=== PATIENT | female | born 1970 | race African-American/Black ===

== ENCOUNTER 2016-11-09 09:11 | Inpatient (IN) | payer MEDICARE, OTHER ==
[~2016-11-09] VITALS: Ht 167.6 cm; Wt 102.6 kg
[~2016-11-09 09:11] MED LIST: BENZ1TAB PO; HALDOL DECONATE IM; HALO10 PO
[2016-11-09 09:31] VITALS: BP 153/86; PULSE 104; RESP 16; TEMP 98.4; O2SAT 100
[2016-11-09] MEDS ORDERED: CLOZ100T3 PO (09:47)
[2016-11-09] MEDS ORDERED: CLOZ200T PO (09:47)
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
[2016-11-09 10:13] LABS: AUTOMATED NEUTROPHIL # 2.9 TH/MM3 (1.8-7.7); BASOPHIL # 0.1 TH/MM3 (0-0.2); HEMATOCRIT 30.6 % (35.0-46.0); HEMO FLAGS DIFF FINAL; LYMPH % 36.4 % (9.0-44.0); LYMPHOCYTE # 1.9 TH/MM3 (1.0-4.8); MEAN CELL VOLUME 80.8 FL (80.0-100.0); MEAN CORPUSCULAR HEMOGLOBIN 27.8 PG (27.0-34.0); MEAN CORPUSCULAR HGB CONC 34.5 % (32.0-36.0); MONO % 6.9 % (0.0-8.0); NEUT % 55.7 % (16.0-70.0); PLATELET COUNT 303 TH/MM3 (150-450); RED BLOOD COUNT 3.79 MIL/MM3 (4.00-5.30); RED CELL DISTRIBUTION WIDTH 12.9 % (11.6-17.2); WHITE BLOOD COUNT 5.2 TH/MM3 (4.0-11.0)
[2016-11-09 10:27] LABS: ANION GAP 7 MEQ/L (5-15); BICARBONATE 25.3 MEQ/L (21.0-32.0); BLOOD UREA NITROGEN 8 MG/DL (7-18); CHLORIDE 107 MEQ/L (98-107); GLOMERULAR FILTRATION RATE 103 ML/MIN (>89); POTASSIUM 3.7 MEQ/L (3.5-5.1); SODIUM (NA) 139 MEQ/L (136-145)
[2016-11-09 10:34] LABS: ALCOHOL LESS THAN 3 MG/DL (0-5)
[2016-11-09] MEDS ORDERED: diphenhydrAMINE HCL 50 MG CAP PO ONE (17:15)
[2016-11-09] MEDS ORDERED: HALOPERIDOL 10 MG TAB PO ONE (17:15)
[2016-11-09 18:17] VITALS: BP 152/90; PULSE 95; RESP 17; TEMP 98.6; O2SAT 99
[2016-11-09 23:00] VITALS: BP 156/106; PULSE 96; RESP 16; TEMP 97.1; O2SAT 99
[2016-11-09] MEDS ORDERED: diphenhydrAMINE HCL 50 MG/ML VIAL - HS PRN IM (23:00)
[2016-11-09] MEDS ORDERED: HALOPERIDOL 5 MG TAB PO PRN (23:00)
[2016-11-09] MEDS ORDERED: ACETAMINOPHEN 325 MG TAB PO PRN (23:00)
[2016-11-09] MEDS ORDERED: LORazepam 2 MG/ML VIAL IM PRN (23:00)
[2016-11-09] MEDS ORDERED: diphenhydrAMINE HCL 50 MG CAP - HS PRN PO (23:00)
[2016-11-09] MEDS ORDERED: ALUMINUM/MAGNESIUM/SIMETH 30 ML CUP PO PRN (23:00)
[2016-11-09] MEDS ORDERED: MAGNESIUM HYDROXIDE SUSP 30 ML CUP PO PRN (23:00)
[2016-11-09] MEDS ORDERED: HALOPERIDOL LACTATE 5 MG/ML AMP IM PRN (23:00)
[2016-11-09] MEDS: cloZAPine 100 MG TAB PO SCH (23:00)
[2016-11-09 23:13] VITALS: BP 166/75; PULSE 87; RESP 18
[2016-11-10] MEDS: LORazepam 1 MG TAB PO PRN ×2 (00:25→18:45)
[2016-11-10] MEDS ORDERED: cloNIDine HCL 0.1 MG TAB PO PRN ×2 (03:15→08:45)
[2016-11-10 05:57] VITALS: BP 121/82; PULSE 92; RESP 18; TEMP 98.6; O2SAT 99
[2016-11-10] MEDS: cloZAPine 100 MG TAB PO SCH ×2 (08:15→19:59)
[2016-11-10] MEDS: NICOTINE 21 MG/24 HR PATCH T-DERMAL SCH (08:16)
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
[2016-11-10] MEDS ORDERED: NICOTINE 14 MG/24 HR PATCH T-DERMAL ONE (09:45)
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
[2016-11-10] MEDS ORDERED: diphenhydrAMINE HCL 50 MG CAP PO SCH (12:00)
[2016-11-10 18:00] VITALS: PULSE 124; RESP 18; O2SAT 100
[2016-11-10] MEDS: diphenhydrAMINE HCL 50 MG CAP PO SCH (19:59)
[2016-11-10] MEDS: REMOVE OLD NICOTINE PATCH T-DERMAL SCH (19:59)
[2016-11-10] MEDS ORDERED: HALOPERIDOL LACTATE 5 MG/ML AMP IM PRN (21:40)
[2016-11-10] MEDS ORDERED: LORazepam 2 MG/ML VIAL IM PRN (22:15)
[2016-11-11] MEDS: NICOTINE 14 MG/24 HR PATCH T-DERMAL SCH (08:49)
[2016-11-11] MEDS: REMOVE OLD PATCH T-DERMAL SCH (08:49)
[2016-11-11] MEDS: cloZAPine 100 MG TAB PO SCH ×2 (08:49→21:24)
[2016-11-11] MEDS: NICOTINE 21 MG/24 HR PATCH T-DERMAL SCH (09:00)
[2016-11-11 10:55] LABS: AUTOMATED NEUTROPHIL # 2.9 TH/MM3 (1.8-7.7); BASOPHIL % 0.4 % (0.0-2.0); HEMATOCRIT 32.4 % (35.0-46.0); HEMO FLAGS DIFF FINAL; LYMPH % 37.3 % (9.0-44.0); MEAN CELL VOLUME 81.5 FL (80.0-100.0); MEAN CORPUSCULAR HEMOGLOBIN 26.3 PG (27.0-34.0); MEAN CORPUSCULAR HGB CONC 32.3 % (32.0-36.0); MONO % 8.9 % (0.0-8.0); NEUT % 53.4 % (16.0-70.0); PLATELET COUNT 348 TH/MM3 (150-450); RED BLOOD COUNT 3.97 MIL/MM3 (4.00-5.30); RED CELL DISTRIBUTION WIDTH 13.3 % (11.6-17.2); WHITE BLOOD COUNT 5.4 TH/MM3 (4.0-11.0)
[2016-11-11 11:21] LABS: ANION GAP 5 MEQ/L (5-15); AST (GOT) 25 U/L (15-37); BICARBONATE 29.3 MEQ/L (21.0-32.0); BLOOD UREA NITROGEN 9 MG/DL (7-18); CHLORIDE 105 MEQ/L (98-107); GLOMERULAR FILTRATION RATE 86 ML/MIN (>89); MAGNESIUM 2.1 MG/DL (1.5-2.5); POTASSIUM 3.9 MEQ/L (3.5-5.1); SODIUM (NA) 139 MEQ/L (136-145)
[2016-11-11 11:22] LABS: ALT (GPT) 20 U/L (10-53)
[2016-11-11 11:31] LABS: ALKALINE PHOSPHATASE 84 U/L (45-117); FREE T4 1.33 NG/DL (0.76-1.46); TOTAL BILIRUBIN ADULT 0.4 MG/DL (0.2-1.0)
--- NOTE | 2016-11-11 14:23 | PD.PSY.CON ---
Provisional Diagnosis Admission Date Nov 09, 2016 at 22:45 [place] I. Schizophrenia, TBI, history of alcohol/cocaine use [place] II. defferred History of Present Illness Service Psychiatry Consult Requested By Reason for Consult Psychosis, second opinion Primary Care Physician Unknown HPI Patient is a 46 y/o woman, single, living with mother and step- father (previously at [facility] x 10 years), with past psychiatric history of schizophrenia, TBI, remote history of alcohol/cocaine use, with multiple psychiatric admissions (last at [facility]), unknown if previous suicide attempts, who was brought to the hospital under [place] act by police for inability to care for self, mother concerned that that patient was having a "mental breakdown" who was admitted to the inpatient psychiatry unit for further evaluation and stabilization. Discussion with nursing staff reported patient noted to be childlike, noted to be urinating on the floor, impulsive and had placed her name bracelet in her vagina; did not sleep last night. Patient was seen on the inpatient psychiatry unit, found participating in activity outside in the patio and found urinating in the grass which patient had to be taken back to the unit. Patient noted to be malodorous and engaging in interview with va underwriter and nurse. Patient noted to be disorganized throughout interview with concrete though process. She states that she had been compliant with medications at home, lives with mother and stepfather, and denies any auditory hallucinations. She recalls her mothers phone number . Patient requested to take a shower. The patient is a 46 year old woman, single, domiciled with her mother, with extensive psychiatric history of schizophrenia, traumatic brain injury, alcoholism, multiple psychiatric hospitalizations, state hospitalizations, who was brought to the hospital due to altered mental breakdown. Patient seen today for psychiatric evaluation and second opinion. Patient is disorganized, agitated, and seclusion. She is not giving any significant information at the moment. As per nursing charge staff members in the unit patient has been very disorganized, agitated, difficult to redirect. Past Family Social History Coded Allergies: ampicillin (Unverified Allergy, Severe, Hives, 09/24/16) azithromycin (Unverified Allergy, Severe, Hives, 09/24/16) cefepime (Unverified Allergy, Severe, Hives, 09/24/16) ceftaroline fosamil (Unverified Allergy, Severe, Hives, 09/24/16) cephalexin (Unverified Allergy, Severe, Hives, 09/24/16) erythromycin base (Unverified Allergy, Severe, Hives, 09/24/16) neomycin (Unverified Allergy, Severe, Hives, 09/24/16) penicillin G (Unverified Allergy, Severe, Hives, 09/24/16) Reported Medications Clozapine (Clozapine) 200 Mg Tab, 200 MG PO HS for Schizophrenia, TAB 0 Refills 11/09/16 Clozapine (Clozapine) 100 Mg Tab, 100 MG PO DAILY for Schizophrenia, TAB 0 Refills 11/09/16 Discontinued Reported Medications [Haldol Deconate] No Conflict Check, 100 MG IM EVERY 4 WEEKS-, 0 Refills 11/05/07 Benztropine Mesylate (Benztropine Mesylate) 1 Mg Tab, 1 MG PO DAILY, #30 0 Refills 11/05/07 Haloperidol (Haldol) 10 Mg Tab, 10 MG PO DAILY, #30 0 Refills 11/05/07 Current Medications Medications (Trade) Dose Ordered Sig/Jarod Route Start Time Stop Time Status Last Admin (Ativan) 1 mg Q6H PRN PO 11/09/16 23:00 11/10/16 18:45 (Ativan Inj) 1 mg Q6H PRN IM 11/09/16 23:00 (Benadryl Inj) 50 mg HS PRN IM 11/09/16 23:00 (Tylenol) 650 mg Q4H PRN PO 11/09/16 23:00 (Milk Of Magnesia Liq) 30 ml DAILY PRN PO 11/09/16 23:00 (Mag-Al Plus Susp Liq) 30 ml Q6H PRN PO 11/09/16 23:00 (Habitrol 21 Mg Patch.24 Hr) 1 patch DAILY T-DERMAL 11/10/16 09:00 11/10/16 08:16 Miscellaneous Information 1 HS T-DERMAL 11/10/16 21:00 (Haldol) 5 mg Q6H PRN PO 11/09/16 23:00 11/10/16 18:45 (Haldol Inj) 5 mg Q6H PRN IM 11/09/16 23:00 (Clozaril) 100 mg DAILY PO 11/10/16 09:00 11/11/16 08:49 (Clozaril) 200 mg HS PO 11/09/16 23:00 11/10/16 19:59 (Catapres) 0.1 mg Q6HR PRN PO 11/10/16 08:45 (Habitrol 14 Mg Patch.24 Hr) 1 patch DAILY T-DERMAL 11/11/16 09:00 11/11/16 08:49 Miscellaneous Information 1 DAILY T-DERMAL 11/11/16 09:00 (Benadryl) 50 mg HS PO 11/10/16 21:00 11/10/16 19:59 Patient's Strengths (min. 2) verbal and comunicative Physical Exam Vital Signs Vital Signs Date Time Temp Pulse Resp B/P (MAP) Pulse Ox O2 Delivery O2 Flow Rate FiO2 11/10/16 18:00 124 18 100 11/10/16 05:57 98.6 121/82 (95) 11/09/16 18:17 Room Air Lab Results Test 11/11/16 09:27 White Blood Count 5.4 TH/MM3 Red Blood Count 3.97 MIL/MM3 Hemoglobin 10.5 GM/DL Hematocrit 32.4 % Mean Corpuscular Volume 81.5 FL Mean Corpuscular Hemoglobin 26.3 PG Mean Corpuscular Hemoglobin Concent 32.3 % Red Cell Distribution Width 13.3 % Platelet Count 348 TH/MM3 Mean Platelet Volume 8.6 FL Neutrophils (%) (Auto) 53.4 % Lymphocytes (%) (Auto) 37.3 % Monocytes (%) (Auto) 8.9 % Eosinophils (%) (Auto) 0.0 % Basophils (%) (Auto) 0.4 % Neutrophils # (Auto) 2.9 TH/MM3 Lymphocytes # (Auto) 2.0 TH/MM3 Monocytes # (Auto) 0.5 TH/MM3 Eosinophils # (Auto) 0.0 TH/MM3 Basophils # (Auto) 0.0 TH/MM3 CBC Comment DIFF FINAL Differential Comment Blood Urea Nitrogen 9 MG/DL Creatinine 0.86 MG/DL Random Glucose 68 MG/DL Total Protein 7.8 GM/DL Albumin 3.5 GM/DL Calcium Level 9.1 MG/DL Phosphorus Level 2.9 MG/DL Magnesium Level 2.1 MG/DL Alkaline Phosphatase 84 U/L Aspartate Amino Transf (AST/SGOT) 25 U/L Alanine Aminotransferase (ALT/SGPT) 20 U/L Total Bilirubin 0.4 MG/DL Sodium Level 139 MEQ/L Potassium Level 3.9 MEQ/L Chloride Level 105 MEQ/L Carbon Dioxide Level 29.3 MEQ/L Anion Gap 5 MEQ/L Estimat Glomerular Filtration Rate 86 ML/MIN Free Thyroxine 1.33 NG/DL Thyroid Stimulating Hormone 3rd Gen 1.730 uIU/ML Mental Status Examination Speech: Unremarkable Orientation: Person, Place Memory: Unremarkable Thought Process: Other (concrete and disorganized) Hallucination Type: None Attention and Concentration: Easily Distracted Suicidal Ideation: No Previous Suicide Attempts: No Homicidal Ideation: No Previous Homicide Attempts: No Insight: Poor Judgment: Poor Affect: Other (restricted) Mood: Other ("ok") Motor Activity: Normal gait Assessment & Plan Problem List: (1) Schizophrenia, acute ICD Codes: F20.9 - Schizophrenia, unspecified Status: Acute Assessment & Plan: I have seen and examined this patient, discussed personally with Dr. Sanders, I agree and concur with his assessment and plan. (2) TBI (traumatic brain injury) ICD Codes: S06.9X9A - Unspecified intracranial injury with loss of consciousness of unspecified duration, initial encounter Assessment & Plan Estimated LOS: Mahad Bernal MD Nov 11, 2016 14:23
--- NOTE | 2016-11-11 16:02 | HHI.PYPN ---
Subjective Remarks Patient seen for follow-up, chart reviewed. Patient found lying on hospital bed , calm and cooperative with interview. As per discussion with nursing staff, patient slept last night but required Haldol 5mg PO and Ativan 1mg PO as she was very active and disorganized yesterday evening but eventually slept. Patient 's mother called and stated that she is willing to take her back once she is better. Patient states feeling "good", wanting to go home, slept better last night. She states taking her medications and agreed to blood draw for labs today. She denies any AVH. Review of Systems Except as stated in HPI: all other systems reviewed are Neg Objective Alert: Yes [place]: Person, Place Mood: Calm Affect: Restricted Memory Intact: Comment (not formally assessed) Hallucinations: Other (denies) Delusions: Yes Delusion Type: Paranoid Suicidal: Ideation (denies) Homicidal: Ideation (denies) Insight/Judgment Poor insight, impulse control and judgment Labs labs reviewed Test 11/11/16 09:27 White Blood Count 5.4 TH/MM3 Red Blood Count 3.97 MIL/MM3 Hemoglobin 10.5 GM/DL Hematocrit 32.4 % Mean Corpuscular Volume 81.5 FL Mean Corpuscular Hemoglobin 26.3 PG Mean Corpuscular Hemoglobin Concent 32.3 % Red Cell Distribution Width 13.3 % Platelet Count 348 TH/MM3 Mean Platelet Volume 8.6 FL Neutrophils (%) (Auto) 53.4 % Lymphocytes (%) (Auto) 37.3 % Monocytes (%) (Auto) 8.9 % Eosinophils (%) (Auto) 0.0 % Basophils (%) (Auto) 0.4 % Neutrophils # (Auto) 2.9 TH/MM3 Lymphocytes # (Auto) 2.0 TH/MM3 Monocytes # (Auto) 0.5 TH/MM3 Eosinophils # (Auto) 0.0 TH/MM3 Basophils # (Auto) 0.0 TH/MM3 CBC Comment DIFF FINAL Differential Comment Blood Urea Nitrogen 9 MG/DL Creatinine 0.86 MG/DL Random Glucose 68 MG/DL Total Protein 7.8 GM/DL Albumin 3.5 GM/DL Calcium Level 9.1 MG/DL Phosphorus Level 2.9 MG/DL Magnesium Level 2.1 MG/DL Alkaline Phosphatase 84 U/L Aspartate Amino Transf (AST/SGOT) 25 U/L Alanine Aminotransferase (ALT/SGPT) 20 U/L Total Bilirubin 0.4 MG/DL Sodium Level 139 MEQ/L Potassium Level 3.9 MEQ/L Chloride Level 105 MEQ/L Carbon Dioxide Level 29.3 MEQ/L Anion Gap 5 MEQ/L Estimat Glomerular Filtration Rate 86 ML/MIN Free Thyroxine 1.33 NG/DL Thyroid Stimulating Hormone 3rd Gen 1.730 uIU/ML Vitals/IOs Vital Signs Date Time Temp Pulse Resp B/P (MAP) Pulse Ox O2 Delivery O2 Flow Rate FiO2 11/10/16 18:00 124 18 100 11/10/16 05:57 98.6 121/82 (95) 11/09/16 18:17 Room Air Assessment & Plan Problem List: (1) Schizophrenia, acute ICD Codes: F20.9 - Schizophrenia, unspecified Status: Acute (2) TBI (traumatic brain injury) ICD Codes: S06.9X9A - Unspecified intracranial injury with loss of consciousness of unspecified duration, initial encounter Assessment & Plan Patient continues to be disorganized, internally preoccupied but was able to sleep last night. Patient is re-directable and requires encouragement to maintain hygiene. Continue current treatment with upward titration as needed. Clozapine level still pending to be drawn. Discharge planning in progress. Justification for Cont. Inpt. At risk for further decompensation if at lower level of care. Emre Sanders MD Nov 11, 2016 16:02
[2016-11-11] MEDS: REMOVE OLD NICOTINE PATCH T-DERMAL SCH (21:00)
[2016-11-11] MEDS: diphenhydrAMINE HCL 50 MG CAP PO SCH (21:24)
[2016-11-12 06:14] VITALS: BP 119/77; PULSE 107; RESP 17; TEMP 97.9; O2SAT 98
[2016-11-12] MEDS: NICOTINE 21 MG/24 HR PATCH T-DERMAL SCH (08:22)
[2016-11-12] MEDS: cloZAPine 100 MG TAB PO SCH (08:22)
[2016-11-12] MEDS: REMOVE OLD PATCH T-DERMAL SCH (09:00)
[2016-11-12] MEDS: NICOTINE 14 MG/24 HR PATCH T-DERMAL SCH (09:00)
--- NOTE | 2016-11-12 10:03 | HHI.PR ---
Subjective Remarks Follow-up visit HTN, anemia. Patient seen and examined today sitting in a chair exercise room. Reports she is doing well. Patient states that she was diagnosed with high blood pressure before and she takes "food, clothing,water, that's what I do." Noted confusion, delirium/psychosis. Unable to verify provided history on medication management. Denies chest pain, headaches. No shortness of breath and dyspnea. Denies fevers or chills. Objective Vitals Vital Signs Date Time Temp Pulse Resp B/P (MAP) Pulse Ox O2 Delivery O2 Flow Rate FiO2 11/12/16 06:14 97.9 107 17 119/77 (91) 98 Result Diagram: 11/11/1692611/11/16926 Objective Remarks GENERAL: This is an obese, well-developed patient, in no apparent distress. SKIN: Warm and dry. HEENT: Normocephalic. Sunken right periorbital area. Unequal eye shape. Nose without bleeding. Airway patent. NECK: Trachea midline. Supple. CARDIOVASCULAR: Regular rate and rhythm without murmurs, gallops, or rubs. RESPIRATORY: Clear to auscultation. Breath sounds equal bilaterally. No wheezes , rales, or rhonchi. GASTROINTESTINAL: Abdomen soft, non-tender, nondistended. Bowel Sounds normoactive x4. MUSCULOSKELETAL: Extremities without clubbing, cyanosis, or edema. NEUROLOGICAL: Awake and alert. Oriented to person. Moves all extremities. Normal speech. A/P Problem List: (1) Hypertension ICD Code: I10 - Essential (primary) hypertension (2) Schizophrenia, acute ICD Code: F20.9 - Schizophrenia, unspecified Status: Acute (3) Morbid obesity ICD Code: E66.01 - Morbid (severe) obesity due to excess calories Assessment and Plan Patient is a 46-year-old female who came in to the hospital under [place] act the police for refusal of taking medications. She is now admitted to psychiatry for further evaluation. Consulted for medical management. History of schizophrenia Psychosis - Managed by psychiatry team Elevated blood pressure on admission - Unknown history of real hypertension. Patient states she has high blood pressure but unable to elaborate. There is no BP medication found on her medical record, nor previous diagnosis of hypertension, except an ED question that placed Yes to HTN . Review of records since 2006. - Review of records since 2006 showed BP wnl, except for every initial admission wherein patient was BA due to not taking her psychiatric medication. - Elevated blood pressure possibly secondary to psychiatric illness being uncontrolled including agitation and anxiety. - Currently on clonidine PRN. - BP trend within normal - Will not start patient on any BP meds for now. Anemia, normocytic - Possibly due to chronic disease - Stable compared to previous labs DVT prop ambulatory Discussed with patient, nursing Stable from Hospitalist standpoint. We will sign off. Reconsult as needed. Becky Vu Nov 12, 2016 10:03
[2016-11-12 16:00] LABS: HEMOGLOBIN A1a 1.6 %; HEMOGLOBIN A1b 0.7 %; HEMOGLOBIN Ao 85.3 %; HEMOGLOBIN F 1.5 %; HEMOGLOBIN LA1C 1.4 %; HEMOGLOBIN P3 3.2 %
--- NOTE | 2016-11-12 16:11 | HHI.PYPN ---
Subjective Remarks Patient seen for follow-up, chart reviewed. Patient found lying on hospital bed , calm and cooperative with interview. Patient states feelng "ok", reports sleeping well, attending groups, and compliant with treatment. She states that she would like to go home. Little deneis any perceptual disturbances or paranoia at this time. Review of Systems Except as stated in HPI: all other systems reviewed are Neg Objective Alert: Yes [place]: Person, Place Mood: Calm Affect: Restricted Memory Intact: Comment (not formally assessed) Hallucinations: Other (denies) Delusions: Yes Delusion Type: Paranoid Suicidal: Ideation (denies) Homicidal: Ideation (denies) Insight/Judgment poor insight, impulse control and judgment Labs Test 11/12/16 09:34 Vitals/IOs Vital Signs Date Time Temp Pulse Resp B/P (MAP) Pulse Ox O2 Delivery O2 Flow Rate FiO2 11/12/16 06:14 97.9 107 17 119/77 (91) 98 11/09/16 18:17 Room Air Intake and Output 11/12/16 11/12/16 11/13/16 08:00 16:00 00:00 Intake Total 360 ml Balance 360 ml Assessment & Plan Problem List: (1) Schizophrenia, acute ICD Codes: F20.9 - Schizophrenia, unspecified Status: Acute (2) TBI (traumatic brain injury) ICD Codes: S06.9X9A - Unspecified intracranial injury with loss of consciousness of unspecified duration, initial encounter Assessment & Plan Patient noted to be responding to treatment but still noted to be disorganized. Will increase clozaril to 100mg AM/225 vmg PO HS Continue rest of medications. Continue to encourage maintenance of hygiene and participation in groups and activities. Justification for Cont. Inpt. At risk for further decompensation if at lower level of care. Emre Sanders MD Nov 12, 2016 16:11
[2016-11-12] MEDS ORDERED: PILL SPLITTER OTHER PRN (16:15)
[2016-11-12 18:17] VITALS: BP 162/80; PULSE 91; RESP 18; TEMP 98.1; O2SAT 100
[2016-11-12] MEDS ORDERED: cloZAPine 100 MG TAB PO SCH (21:00)
[2016-11-12] MEDS: REMOVE OLD NICOTINE PATCH T-DERMAL SCH (21:00)
[2016-11-12] MEDS: diphenhydrAMINE HCL 50 MG CAP PO SCH (21:17)
[2016-11-13 06:22] VITALS: BP 138/71; PULSE 99; RESP 16; TEMP 98.3; O2SAT 99
[2016-11-13] MEDS: cloZAPine 100 MG TAB PO SCH (08:28)
[2016-11-13] MEDS: NICOTINE 14 MG/24 HR PATCH T-DERMAL SCH (08:30)
[2016-11-13] MEDS: REMOVE OLD PATCH T-DERMAL SCH (08:31)
--- NOTE | 2016-11-13 15:18 | HHI.PYPN ---
Subjective Remarks Patient seen for follow-up, chart reviewed. Patient found lying in hospital bed , was able to wake up and interact with interview today. Patient states that she is feeling better, tolerating medications well denies any adverse drug reactions. Patient states that she would like to go home and feels she is very to go home. Patient noted to be disorganized on occasion during interview also noted were concrete thought processes patient has history of traumatic brain injury. Patient aware that she will be presenting herself to mental health court tomorrow. Patient denies SI, HI, AVH or delusions at this time. Review of Systems Except as stated in HPI: all other systems reviewed are Neg Objective Alert: Yes [place]: Person, Place Mood: Calm Affect: Restricted Memory Intact: Comment (not formally assessed) Hallucinations: Other (denies) Delusions: Yes Delusion Type: Paranoid (less so today) Suicidal: Ideation (denies) Homicidal: Ideation (denies) Insight/Judgment Limited insight, impulse control and judgment Vitals/IOs Vital Signs Date Time Temp Pulse Resp B/P (MAP) Pulse Ox O2 Delivery O2 Flow Rate FiO2 11/13/16 06:22 98.3 99 16 138/71 (93) 99 11/09/16 18:17 Room Air Assessment & Plan Problem List: (1) Schizophrenia, acute ICD Codes: F20.9 - Schizophrenia, unspecified Status: Acute (2) TBI (traumatic brain injury) ICD Codes: S06.9X9A - Unspecified intracranial injury with loss of consciousness of unspecified duration, initial encounter Assessment & Plan Patient at this time appears to be responding well to current treatment but noted to have occasional moments of disorganization during interview. Patient has history of TBI and therefore with impaired cognition impulse control due to the same. We'll increase clozapine to 100 mg a.m. and 250 mg at bedtime for psychosis. We'll try to have mother visited patient to assess if patient is at baseline. Continue to monitor medication response and adverse drug reactions. Discharge planning in progress Justification for Cont. Inpt. At risk for further decompensation if at lower level of care Emre Sanders MD Nov 13, 2016 15:18
[2016-11-13 17:00] VITALS: BP 113/63; PULSE 105; RESP 18; TEMP 97.8; O2SAT 99
--- NOTE | 2016-11-13 17:21 | PD.TTN ---
Patient Problems 1. Discharge planning 2. Medication compliance 3. Knowledge deficit 4. Lack of coping skills Progress Toward Goals Provider Present: Dr. Delfina Sanders Provider Input: Dr. Dodson's treatment team met to discuss treatment plan, discharge, and medication. Patient's medication is being increased. Possible discharge tomorrow or Friday. Psychiatric Counselors Present: MELECIO Powers Psych Therapist Input: Patient presented anxious, cooperative but constricted, childlike, dependent. pleasant, affect blunted. Patient's speech is clear, disorganized, and pressure. Patient denies suicidal and homicidal. 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 Patient is intrusive, participates appropriately Ruchi Torres Nov 13, 2016 17:21
[2016-11-13] MEDS ORDERED: cloZAPine 100 MG TAB PO SCH (21:00)
[2016-11-13] MEDS: REMOVE OLD NICOTINE PATCH T-DERMAL SCH (21:00)
[2016-11-13] MEDS: diphenhydrAMINE HCL 50 MG CAP PO SCH (21:07)
[2016-11-14 05:37] VITALS: BP 104/63; PULSE 106; RESP 17; TEMP 98
[2016-11-14] MEDS: REMOVE OLD PATCH T-DERMAL SCH (08:27)
[2016-11-14] MEDS: cloZAPine 100 MG TAB PO SCH (08:27)
[2016-11-14] MEDS: NICOTINE 14 MG/24 HR PATCH T-DERMAL SCH (08:29)
[2016-11-14] MEDS ORDERED: DIPH50CA PO (08:49)
[2016-11-14] MEDS ORDERED: CLOZ100 PO ×2 (08:49)
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
[2016-11-14 08:56] LABS: CLOZAPINE/NORCLOZAPINE TOTAL 864 ng/mL (>450); NORCLOZAPINE 206 ng/mL
== END 2016-11-14 10:05 | disposition home or self-care (01) | DRG 885 ==
LOC: NEPD 09:11 → NEDA 22:45 → H270 23:30
PROVIDERS: ADMIT Student in an Organized Health Care Education/Training Program; ATTEND Student in an Organized Health Care Education/Training Program
DX: F20.9 Schizophrenia, unspecified (principal); Z91.14 Patient's other noncompliance with medication regimen; E66.01 Morbid (severe) obesity due to excess calories; Z68.36 Body mass index [BMI] 36.0-36.9, adult; Z87.820 Personal history of traumatic brain injury; H54.61 Unqualified visual loss, right eye, normal vision left eye; I10 Essential (primary) hypertension; F17.210 Nicotine dependence, cigarettes, uncomplicated; D64.9 Anemia, unspecified
CPT/HCPCS: 80048; 80053; 80159; 80307; 83036; 83735; 84100; 84439; 84443; 84703; 85025; G0480; Q0163

== ENCOUNTER 2017-01-19 09:51 | Inpatient (IN) | payer MEDICARE, OTHER ==
[~2017-01-19] VITALS: Ht 167.6 cm; Wt 105.9 kg
[~2017-01-19 09:51] MED LIST changes: -BENZ1TAB PO; +CLOZ100T PO; +CLOZ100T3 PO; +CLOZ200T PO; +DIPH50CA PO; -HALDOL DECONATE IM; -HALO10 PO
[2017-01-19 09:57] VITALS: BP 156/88; PULSE 71; RESP 16; TEMP 98.8; O2SAT 98
[2017-01-19 10:35] VITALS: BP 128/73; PULSE 110; RESP 18; TEMP 97.1; O2SAT 100
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
[2017-01-19] MEDS ORDERED: PANTOPRAZOLE SOD 40 MG DELAYED RELEASE TAB PO ONE (12:15)
[2017-01-19] MEDS ORDERED: OLANZapine IM 10 MG VIAL IM ONE (12:15)
[2017-01-19] MEDS ORDERED: HALOPERIDOL LACTATE 5 MG/ML AMP IM PRN (12:15)
[2017-01-19] MEDS ORDERED: diphenhydrAMINE HCL 50 MG/ML VIAL IM ONE (12:15)
[2017-01-19] MEDS ORDERED: LORazepam 2 MG/ML VIAL IM PRN (12:15)
[2017-01-19 13:57] LABS: AUTOMATED NEUTROPHIL # 10.9 TH/MM3 (1.8-7.7); BASOPHIL # 0.1 TH/MM3 (0-0.2); BASOPHIL % 0.5 % (0.0-2.0); HEMATOCRIT 32.6 % (35.0-46.0); HEMO FLAGS DIFF FINAL; LYMPH % 14.1 % (9.0-44.0); MEAN CELL VOLUME 80.5 FL (80.0-100.0); MEAN CORPUSCULAR HEMOGLOBIN 26.2 PG (27.0-34.0); MEAN CORPUSCULAR HGB CONC 32.5 % (32.0-36.0); MONO % 7.3 % (0.0-8.0); NEUT % 78.1 % (16.0-70.0); PLATELET COUNT 297 TH/MM3 (150-450); RED BLOOD COUNT 4.05 MIL/MM3 (4.00-5.30); RED CELL DISTRIBUTION WIDTH 14.6 % (11.6-17.2)
[2017-01-19 14:27] LABS: ALT (GPT) 50 U/L (10-53); ANION GAP 10 MEQ/L (5-15); AST (GOT) 188 U/L (15-37); BICARBONATE 24.5 MEQ/L (21.0-32.0); BLOOD UREA NITROGEN 13 MG/DL (7-18); CHLORIDE 104 MEQ/L (98-107); GLOMERULAR FILTRATION RATE 81 ML/MIN (>89); POTASSIUM 3.7 MEQ/L (3.5-5.1); SODIUM (NA) 138 MEQ/L (136-145)
[2017-01-19 14:30] LABS: ALKALINE PHOSPHATASE 99 U/L (45-117); TOTAL BILIRUBIN ADULT 0.5 MG/DL (0.2-1.0)
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
[2017-01-19] MEDS ORDERED: MAGNESIUM HYDROXIDE SUSP 30 ML CUP PO PRN (17:15)
[2017-01-19] MEDS ORDERED: ALUMINUM/MAGNESIUM/SIMETH 30 ML CUP PO PRN (17:15)
[2017-01-19] MEDS: ACETAMINOPHEN 325 MG TAB PO PRN (17:31)
[2017-01-19 18:30] VITALS: BP 125/66; PULSE 123; RESP 20; TEMP 98.3; O2SAT 100
[2017-01-19] MEDS: diphenhydrAMINE HCL 50 MG CAP PO SCH (20:25)
[2017-01-19] MEDS ORDERED: cloZAPine 100 MG TAB PO SCH (21:00)
[2017-01-20 05:44] VITALS: BP 131/78; PULSE 118; RESP 16; TEMP 97.4; O2SAT 100
[2017-01-20] MEDS: cloZAPine 100 MG TAB PO SCH ×2 (09:00→20:43)
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
[2017-01-20 09:57] LABS: ANION GAP 8 MEQ/L (5-15); BICARBONATE 25.8 MEQ/L (21.0-32.0); BLOOD UREA NITROGEN 10 MG/DL (7-18); CHLORIDE 107 MEQ/L (98-107); GLOMERULAR FILTRATION RATE 73 ML/MIN (>89); POTASSIUM 3.3 MEQ/L (3.5-5.1); SODIUM (NA) 141 MEQ/L (136-145)
[2017-01-20 10:03] LABS: HDL CHOLESTEROL 77.1 MG/DL (40.0-60.0); LDL CHOLESTEROL 95 MG/DL (0-99)
[2017-01-20] MEDS ORDERED: POTASSIUM CHLORIDE 10 MEQ CONTROLLED RELEASE TAB PO ONE (12:15)
[2017-01-20 14:19] LABS: BHCG SCREEN QUALITATIVE LESS THAN 1 MIU/ML (0-5)
[2017-01-20 14:21] LABS: AUTOMATED NEUTROPHIL # 5.9 TH/MM3 (1.8-7.7); BASOPHIL % 0.5 % (0.0-2.0); EOSINOPHIL % 0.1 % (0.0-4.0); HEMATOCRIT 31.2 % (35.0-46.0); LYMPH % 24.8 % (9.0-44.0); LYMPHOCYTE # 2.1 TH/MM3 (1.0-4.8); MEAN CELL VOLUME 80.8 FL (80.0-100.0); MEAN CORPUSCULAR HEMOGLOBIN 26.7 PG (27.0-34.0); MONO % 6.7 % (0.0-8.0); NEUT % 67.9 % (16.0-70.0); PLATELET COUNT 299 TH/MM3 (150-450); RED BLOOD COUNT 3.86 MIL/MM3 (4.00-5.30); RED CELL DISTRIBUTION WIDTH 14.5 % (11.6-17.2); WHITE BLOOD COUNT 8.7 TH/MM3 (4.0-11.0)
[2017-01-20 14:22] LABS: HEMO FLAGS AUTO DIFF
[2017-01-20 15:37] LABS: OVALOCYTES 1+ (NORMAL); PLATELET ESTIMATE SMEAR NORMAL (NORMAL); PLATELET MORPHOLOGY ENLARGED (NORMAL); SCAN/DIFF AUTO DIFF CONFIRMED
[2017-01-20 16:04] LABS: HEMOGLOBIN A1a 1.3 %; HEMOGLOBIN A1b 0.8 %; HEMOGLOBIN Ao 85.2 %; HEMOGLOBIN F 1.4 %; HEMOGLOBIN LA1C 2.2 %; HEMOGLOBIN P3 3.4 %
[2017-01-20 18:51] VITALS: BP 128/70; PULSE 108; RESP 18; TEMP 97.1; O2SAT 100
[2017-01-20] MEDS: diphenhydrAMINE HCL 50 MG CAP PO SCH (20:42)
[2017-01-21 05:51] VITALS: BP 136/95; PULSE 107; RESP 18; TEMP 97.4; O2SAT 100
[2017-01-21] MEDS: cloZAPine 100 MG TAB PO SCH ×2 (08:35→20:22)
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
--- NOTE | 2017-01-21 12:18 | PD.TTN ---
Patient Problems 1. Discharge planning 2. Medication compliance 3. Knowledge deficit 4. Lack of coping skills Progress Toward Goals Provider Present: Dr. Reji Huerta Provider Input: Pt medication regiment continues to be evaluated including increase in pt Clozaril dose. Nurse(s) Present: Quynh Beverly, RN Nurse(s) Input: Pt appears to be doing much better though she presents as easily confused and seems to respond to internal stimuli at times though she denies any symptoms. Psychiatric Counselors Present: KACY Daley Psych Therapist Input: Pt appears calm, cooperative, appropriate, organized, oriented and somewhat intrusive. She denies any symptoms and likely has poor insight into condition and need for care. She appears to be utilizing coping and emotional regulation skills as she has had no outbursts. She is compliant with medication regiment. Group Spec/RT/OT/RAHMAN Present: IMELDA Leong Group Spec/RT/OT/RAHMAN Input: Pt attended exercise group yesterday and appears to be responding to internal stimuli at times. Discharge Plan SMA Pt will be returning to her home and will be linked with outpatient psychiatric follow up appointment. Documentation Scribe: KACY Daley Jonathan LMHC Jan 21, 2017 12:18
[2017-01-21 12:40] LABS: ANION GAP 7 MEQ/L (5-15); AST (GOT) 81 U/L (15-37); BICARBONATE 28.3 MEQ/L (21.0-32.0); BLOOD UREA NITROGEN 8 MG/DL (7-18); CHLORIDE 106 MEQ/L (98-107); GLOMERULAR FILTRATION RATE 90 ML/MIN (>89); POTASSIUM 3.8 MEQ/L (3.5-5.1); SODIUM (NA) 141 MEQ/L (136-145)
[2017-01-21 12:43] LABS: ALKALINE PHOSPHATASE 94 U/L (45-117); ALT (GPT) 46 U/L (10-53); TOTAL BILIRUBIN ADULT 0.2 MG/DL (0.2-1.0)
--- NOTE | 2017-01-21 13:35 | EKG ---
Date Performed: 01/20/2017 Time Performed: 16:31:38 PTAGE: 46 years EKG: Sinus rhythm POSSIBLE LEFT ATRIAL ENLARGEMENT BORDERLINE ECG Compared to PREVIOUS TRACING , left atrial abnormality is new. PREVIOUS TRACIN04/02/2006 10.57 DOCTOR: Cecilio Smith Interpretating Date/Time 01/21/2017 13:16:35
[2017-01-21] MEDS ORDERED: PILL SPLITTER OTHER PRN (15:30)
[2017-01-21 17:26] VITALS: BP 143/86; PULSE 102; RESP 18; TEMP 98; O2SAT 99
[2017-01-21] MEDS: diphenhydrAMINE HCL 50 MG CAP PO SCH (20:22)
[2017-01-22 05:49] VITALS: BP 146/98; PULSE 105; RESP 18; TEMP 97
[2017-01-22] MEDS: cloZAPine 100 MG TAB PO SCH ×2 (08:36→20:36)
--- NOTE | 2017-01-22 11:08 | HHI.PYPN ---
Subjective Chief Complaint: Wandering, suicidal/homicidal threat Remarks Patient seen and examined with counselor and nurse. Chart reviewed. Case discussed with counselor and nurse. Per nursing staff, no behavioral issues overnight. On my examination today, the patient is in good spirits. No depressive or hypomanic/manic symptoms. She says that she slept well overnight. She denies any suicidal or homicidal ideation. Denies any audiovisual hallucinations. Thought process considerably more organized today. Denies side effects from medications. No physical complaints. Review of Systems Except as stated in HPI: all other systems reviewed are Neg Mental Status Examination Appearance: Appropriate Consciousness: Alert Orientation: Person, Place Motor Activity: Normal gait, Other (no motor abnormalities noted) Speech: Unremarkable Language: Adequate Fund of Knowledge: Inadequate Attention and Concentration: Adequate (much more focused today) Memory: Unremarkable Mood: Good Affect: Euthymic Thought Process & Associations: Linear Thought Content: Appropriate Hallucination Type: None Delusion Type: None Suicidal Ideation: No Suicidal Plan: No Suicidal Intention: No Homicidal Ideation: No Homicidal Plan: No Homicidal Intention: No Insight: Poor Judgment: Poor Results Labs Labs reviewed. HIV and Hepatitis negative. Clozapine level is pending. Vitals/IOs Vital Signs Date Time Temp Pulse Resp B/P (MAP) Pulse Ox O2 Delivery O2 Flow Rate FiO2 01/22/17 05:49 97.0 105 18 146/98 (114) 01/21/17 17:26 99 01/19/17 10:35 Room Air Assessment & Plan Problem List: (1) Schizophrenia ICD Codes: F20.9 - Schizophrenia, unspecified (2) Cocaine abuse ICD Codes: F14.10 - Cocaine abuse, uncomplicated Status: Acute (3) TBI (traumatic brain injury) ICD Codes: S06.9X9A - Unspecified intracranial injury with loss of consciousness of unspecified duration, initial encounter Status: Chronic Assessment & Plan Patient seems much improved today with medication adjustment. Awaiting confirmation of safe discharge plan home; counselor is working on this. Continue clozapine as ordered. Continue other medications and care as ordered. Patient may sign voluntary. Justification for Cont. Inpt. Discharge planning Discharge Planning Anticipate discharge home in the next day or two. 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
[2017-01-22 17:08] VITALS: BP 173/91; PULSE 104; RESP 18; TEMP 98; O2SAT 100
[2017-01-22] MEDS: diphenhydrAMINE HCL 50 MG CAP PO SCH (20:36)
[2017-01-23 03:18] VITALS: BP 134/82; PULSE 108; RESP 20
[2017-01-23 06:03] VITALS: BP 137/69; PULSE 101; RESP 18; TEMP 98.7; O2SAT 100
[2017-01-23] MEDS: cloZAPine 100 MG TAB PO SCH ×2 (08:54→20:42)
--- NOTE | 2017-01-23 12:15 | HHI.PYPN ---
Subjective Chief Complaint: Wandering, suicidal/homicidal threat Remarks Patient seen and examined with nurse. Chart reviewed. Case discussed with nursing staff who reports that the patient has been rambling to herself about going to court, although she did sign in voluntarily. Patient was also unable to tolerate a movie group yesterday because she was apparently internally preoccupied and disturbing other viewers. On my examination today, patient tells me that she feels "a little angry" at her parents for not bringing her more clean clothes. Affect does not seem particularly angry, and she remains fairly childlike. She is noted to be responding to internal stimuli and says that she "heard voices and thought I heard my mom." She denies any suicidal or homicidal ideation. Denies any side effects from medications. No physical complaints. Review of Systems ROS Limitations: Psychotic, Poor Historian Except as stated in HPI: all other systems reviewed are Neg Mental Status Examination Appearance: Appropriate Consciousness: Alert Orientation: Person, Place Motor Activity: Normal gait, Other (no abnormal motor movements noted) Speech: Unremarkable Language: Adequate Fund of Knowledge: Inadequate Attention and Concentration: Adequate Memory: Unremarkable Mood: Angry Affect: Euthymic (childlike, inconsistent with stated mood) Thought Process & Associations: Linear Thought Content: Appropriate Hallucination Type: Auditory (no reported command auditory hallucinations) Delusion Type: None Suicidal Ideation: No Suicidal Plan: No Suicidal Intention: No Homicidal Ideation: No Homicidal Plan: No Homicidal Intention: No Insight: Poor Judgment: Poor Results Labs Labs reviewed. No new labs. Clozapine level is pending. Vitals/IOs Vital Signs Date Time Temp Pulse Resp B/P (MAP) Pulse Ox O2 Delivery O2 Flow Rate FiO2 01/23/17 06:03 98.7 101 18 137/69 (91) 100 01/19/17 10:35 Room Air Assessment & Plan Problem List: (1) Schizophrenia ICD Codes: F20.9 - Schizophrenia, unspecified (2) Cocaine abuse ICD Codes: F14.10 - Cocaine abuse, uncomplicated Status: Acute (3) TBI (traumatic brain injury) ICD Codes: S06.9X9A - Unspecified intracranial injury with loss of consciousness of unspecified duration, initial encounter Status: Chronic Assessment & Plan Patient with interval worsening of psychotic symptoms. Medication non- adherence is not suspected. I will titrate clozapine one more time to 200mg/ 300mg to target psychotic symptoms. I will prophylactically institute seizure precautions as we are titrating the dose above 450mg/day, although patient has tolerated this agent well throughout with no evidence of any side effects. If this medication adjustment is insufficient, we may need to consider an alternative strategy such as augmentation with another antipsychotic (patient has been on Haldol in the past, for example) or addition of a mood stabilizing agent, and I note that the patient has been on Depakote in the past as well. Continue to monitor on inpatient unit. Continue other medications and care as ordered. Justification for Cont. Inpt. Impairment in reality construction. Medication changes. Risk for decompensation in less restrictive setting. Discharge Planning Pending psychiatric stabilization. Request HC Surrog/Guard Advoc?: Yes Problem Qualifiers (1) Schizophrenia: Qualified Codes: F20.1 - Disorganized schizophrenia (2) TBI (traumatic brain injury): Qualified Codes: S06.9X9S - Unspecified intracranial injury with loss of consciousness of unspecified duration, sequela Nicolas Huerta MD Jan 23, 2017 12:15
[2017-01-23] MEDS ORDERED: cloZAPine 25 MG TAB PO ONE (14:15)
[2017-01-23 16:33] LABS: CLOZAPINE/NORCLOZAPINE TOTAL 583 ng/mL (>450); NORCLOZAPINE 160 ng/mL
[2017-01-23] MEDS: diphenhydrAMINE HCL 50 MG CAP PO SCH (20:42)
[2017-01-24 05:00] VITALS: BP 127/75; PULSE 105; RESP 20; TEMP 97.9; O2SAT 100
--- NOTE | 2017-01-24 10:01 | PD.TTN ---
Patient Problems 1. Discharge planning 2. Medication compliance 3. Knowledge deficit 4. Lack of coping skills Progress Toward Goals Provider Present: Dr. Reji Huerta Provider Input: Pt medication regiment continues to be evaluated including increase in pt Clozaril dose. 01/24/17 Patient has a history of TBI. Patient is somatic, internally stimulated. Patient's medication will be increased. At this time patient meets criteria Nurse(s) Present: Quynh Beverly, RN Nurse(s) Input: Pt appears to be doing much better though she presents as easily confused and seems to respond to internal stimuli at times though she denies any symptoms. 01/24/17 Patient's nurse Cris reports patient is medication complaint, cooperative, attends groups and performs her ADL's Psychiatric Counselors Present: KACY Daley Psych Therapist Input: Pt appears calm, cooperative, appropriate, organized, oriented and somewhat intrusive. She denies any symptoms and likely has poor insight into condition and need for care. She appears to be utilizing coping and emotional regulation skills as she has had no outbursts. She is compliant with medication regiment. 01/24/17 Patient presents childlike, intrusive, seclusive preoccupied, affect blunted. patient is alert to person and place but has poor insight into her situation. Patient is medication compliant. Once patient stablizes patient will return home with parents. At this time patient meets criteria. Group Spec/RT/OT/RAHMAN Present: Shruti Rock, IMELDA, LACEY Morin Group Spec/RT/OT/RAHMAN Input: Pt attended exercise group yesterday and appears to be responding to internal stimuli at times. 01/24/17 Patient attends 75% of groups. Patient is often seen talking to himself and requires cues to be appropriate in some groups. Discharge Plan SMA Pt will be returning to her home and will be linked with outpatient psychiatric follow up appointment. Documentation Scribe: KACY Daley [facility] Jan 24, 2017 10:00
[2017-01-24] MEDS: cloZAPine 100 MG TAB PO SCH ×2 (10:48→21:52)
--- NOTE | 2017-01-24 12:50 | HHI.PYPN ---
Subjective Chief Complaint: Wandering, suicidal/homicidal threat Remarks Patient seen and examined with nurse. Chart reviewed. Case discussed with nurse and in treatment team. Both counselor and occupational therapists note that the patient struggles in groups and unit activities. She is frequently inappropriate and has to be excused from groups. Unclear how much of this is related to history of traumatic brain injury. On my examination today, the patient is somewhat intrusive. Speech is somewhat rambling and difficult to follow. She seems to say something about the shower, but it is difficult to follow the sense of what she is telling me. No SI or HI. She denies side effects from medications. No physical complaints. Review of Systems ROS Limitations: Psychotic, Poor Historian Except as stated in HPI: all other systems reviewed are Neg Mental Status Examination Appearance: Appropriate Consciousness: Alert Orientation: Person, Place Motor Activity: Normal gait, Other (no motor abnormalities appreciated) Speech: Unremarkable Language: Adequate Fund of Knowledge: Inadequate Attention and Concentration: Adequate Memory: Unremarkable Mood: Appropriate Affect: Euthymic (childlike) Thought Process & Associations: Other (somewhat more disorganized today) Thought Content: Appropriate Hallucination Type: None Delusion Type: None Suicidal Ideation: No Suicidal Plan: No Suicidal Intention: No Homicidal Ideation: No Homicidal Plan: No Homicidal Intention: No Insight: Poor Judgment: Poor Results Labs Labs reviewed. Clozapine level resulted and as above cutoff. Vitals/IOs Vital Signs Date Time Temp Pulse Resp B/P (MAP) Pulse Ox O2 Delivery O2 Flow Rate FiO2 01/24/17 05:00 97.9 105 20 127/75 (92) 100 Assessment & Plan Problem List: (1) Schizophrenia ICD Codes: F20.9 - Schizophrenia, unspecified (2) Cocaine abuse ICD Codes: F14.10 - Cocaine abuse, uncomplicated Status: Acute (3) TBI (traumatic brain injury) ICD Codes: S06.9X9A - Unspecified intracranial injury with loss of consciousness of unspecified duration, initial encounter Status: Chronic Assessment & Plan Given clozapine level (which was based on prior to admission dosing), further titration of this agent is unlikely to yield additional benefit. Unclear how much of residual behavioral disturbance is secondary to psychosis and how much to TBI, although I suspect that the majority of the contribution is from the latter. I therefore think Depakote is a reasonable choice at this time. The patient does have a resolving transaminitis, likely from prior to admission substance use, and so this will need to be monitored. Platelets are okay. test was negative. Add Depakote DR 250 mg twice daily with plans to check a Depakote level, ammonia level and a set of LFTs after the weekend. Continue to monitor on the inpatient unit. Continue other medications and care as ordered. Justification for Cont. Inpt. Med changes. Risk for decompensation in less restrictive environment. Discharge Planning Possible discharge beginning or middle of next week. Case discussed with counselor. Request HC Surrog/Guard Advoc?: No Problem Qualifiers (1) Schizophrenia: Qualified Codes: F20.1 - Disorganized schizophrenia (2) TBI (traumatic brain injury): Qualified Codes: S06.9X9S - Unspecified intracranial injury with loss of consciousness of unspecified duration, sequela Nicolas Huerta MD Jan 24, 2017 12:50
[2017-01-24] MEDS: ACETAMINOPHEN 325 MG TAB PO PRN (13:13)
[2017-01-24 17:41] VITALS: BP 146/78; PULSE 106; RESP 18; TEMP 98.3; O2SAT 100
[2017-01-24] MEDS: diphenhydrAMINE HCL 50 MG CAP PO SCH (21:51)
[2017-01-24] MEDS: DIVALPROEX SODIUM DELAYED RELEASE 250 MG TAB PO SCH (21:51)
[2017-01-25 05:39] VITALS: BP 130/79; PULSE 71; RESP 18; TEMP 97.6; O2SAT 96
[2017-01-25] MEDS: DIVALPROEX SODIUM DELAYED RELEASE 250 MG TAB PO SCH ×2 (09:32→21:00)
[2017-01-25] MEDS: cloZAPine 100 MG TAB PO SCH ×2 (09:33→21:42)
--- NOTE | 2017-01-25 15:31 | HHI.PYPN ---
Subjective Chief Complaint: Wandering, suicidal/homicidal threat Remarks Patient was seen and case discussed with nursing. Patient appears elevated and his inappropriate during the interview. At one point she says do want to do a jump and a kiss and does both at a distance from myself. Insight remains poor. Appears internally stimulated denies auditory visual hallucinations Mental Status Examination Appearance: Appropriate Consciousness: Alert Orientation: Person, Place Motor Activity: Normal gait, Other (no motor abnormalities appreciated) Speech: Unremarkable Language: Adequate Fund of Knowledge: Inadequate Attention and Concentration: Adequate Memory: Unremarkable Mood: Appropriate Affect: Euthymic (childlike) Thought Process & Associations: Disorganized Thought Content: Appropriate Hallucination Type: None Delusion Type: None Suicidal Ideation: No Suicidal Plan: No Suicidal Intention: No Homicidal Ideation: No Homicidal Plan: No Homicidal Intention: No Insight: Poor Judgment: Poor Results Vitals/IOs Vital Signs Date Time Temp Pulse Resp B/P (MAP) Pulse Ox O2 Delivery O2 Flow Rate FiO2 01/25/17 05:39 97.6 71 18 130/79 (96) 96 Intake and Output 01/25/17 01/25/17 01/26/17 08:00 16:00 00:00 Intake Total 360 ml Balance 360 ml Assessment & Plan Problem List: (1) Schizophrenia ICD Codes: F20.9 - Schizophrenia, unspecified (2) Cocaine abuse ICD Codes: F14.10 - Cocaine abuse, uncomplicated Status: Acute (3) TBI (traumatic brain injury) ICD Codes: S06.9X9A - Unspecified intracranial injury with loss of consciousness of unspecified duration, initial encounter Status: Chronic Assessment & Plan Continue current treatment plan Justification for Cont. Inpt. Patient would decompensate in a less restrictive setting Request HC Surrog/Guard Advoc?: No Problem Qualifiers (1) Schizophrenia: Qualified Codes: F20.1 - Disorganized schizophrenia (2) TBI (traumatic brain injury): Qualified Codes: S06.9X9S - Unspecified intracranial injury with loss of consciousness of unspecified duration, sequela Robbie Jaffe DO Jan 25, 2017 15:31
[2017-01-25 18:33] VITALS: BP 145/90; PULSE 104; RESP 18; TEMP 98.2; O2SAT 100
[2017-01-25] MEDS: diphenhydrAMINE HCL 50 MG CAP PO SCH (21:42)
[2017-01-26 06:00] VITALS: BP 145/82; PULSE 104; RESP 17; TEMP 97.6; O2SAT 100
[2017-01-26] MEDS: cloZAPine 100 MG TAB PO SCH ×2 (08:28→21:32)
[2017-01-26] MEDS: DIVALPROEX SODIUM DELAYED RELEASE 250 MG TAB PO SCH ×2 (08:29→21:00)
--- NOTE | 2017-01-26 11:09 | HHI.PYPN ---
Subjective Chief Complaint: Wandering, suicidal/homicidal threat Remarks Patient was seen and case discussed with nursing. Patient remains disorganized , pressured, hyperverbal, flight of ideas. At times intrusive. She was apparently talking to me when I was all away across the room talking to another patient instead of talking to herself. Per nursing she is showering and going to groups. Denies auditory visual hallucinations Mental Status Examination Appearance: Appropriate Consciousness: Alert Orientation: Person, Place Motor Activity: Normal gait, Other (no motor abnormalities appreciated) Speech: Unremarkable Language: Adequate Fund of Knowledge: Inadequate Attention and Concentration: Adequate Memory: Unremarkable Mood: Appropriate Affect: Euthymic (childlike) Thought Process & Associations: Disorganized Thought Content: Appropriate Hallucination Type: None Delusion Type: None Suicidal Ideation: No Suicidal Plan: No Suicidal Intention: No Homicidal Ideation: No Homicidal Plan: No Homicidal Intention: No Insight: Poor Judgment: Poor Results Vitals/IOs Vital Signs Date Time Temp Pulse Resp B/P (MAP) Pulse Ox O2 Delivery O2 Flow Rate FiO2 01/26/17 06:00 97.6 104 17 145/82 (103) 100 Assessment & Plan Problem List: (1) Schizophrenia ICD Codes: F20.9 - Schizophrenia, unspecified (2) Cocaine abuse ICD Codes: F14.10 - Cocaine abuse, uncomplicated Status: Acute (3) TBI (traumatic brain injury) ICD Codes: S06.9X9A - Unspecified intracranial injury with loss of consciousness of unspecified duration, initial encounter Status: Chronic Assessment & Plan Continue current treatment plan Justification for Cont. Inpt. Patient will decompensate in a less restrictive setting Request HC Surrog/Guard Advoc?: No Problem Qualifiers (1) Schizophrenia: Qualified Codes: F20.1 - Disorganized schizophrenia (2) TBI (traumatic brain injury): Qualified Codes: S06.9X9S - Unspecified intracranial injury with loss of consciousness of unspecified duration, sequela Robbie Jaffe DO Jan 26, 2017 11:09
[2017-01-26] MEDS: ACETAMINOPHEN 325 MG TAB PO PRN (12:46)
[2017-01-26 18:45] VITALS: BP 160/90; PULSE 114; RESP 18; TEMP 97.5; O2SAT 100
[2017-01-26] MEDS: diphenhydrAMINE HCL 50 MG CAP PO SCH (21:32)
[2017-01-27 06:02] VITALS: BP 124/63; PULSE 93; RESP 17; TEMP 98.1; O2SAT 100
[2017-01-27 07:46] LABS: AUTOMATED NEUTROPHIL # 4.3 TH/MM3 (1.8-7.7); BASOPHIL % 0.5 % (0.0-2.0); EOSINOPHIL % 0.1 % (0.0-4.0); HEMATOCRIT 33.8 % (35.0-46.0); HEMO FLAGS DIFF FINAL; LYMPH % 30.3 % (9.0-44.0); LYMPHOCYTE # 2.2 TH/MM3 (1.0-4.8); MEAN CELL VOLUME 81.9 FL (80.0-100.0); MEAN CORPUSCULAR HEMOGLOBIN 26.2 PG (27.0-34.0); MEAN CORPUSCULAR HGB CONC 31.9 % (32.0-36.0); MONO % 10.2 % (0.0-8.0); NEUT % 58.9 % (16.0-70.0); PLATELET COUNT 295 TH/MM3 (150-450); RED BLOOD COUNT 4.13 MIL/MM3 (4.00-5.30); RED CELL DISTRIBUTION WIDTH 14.7 % (11.6-17.2); WHITE BLOOD COUNT 7.2 TH/MM3 (4.0-11.0)
[2017-01-27 08:01] LABS: INDIRECT BILIRUBIN 0.2 MG/DL (0.0-0.8); TOTAL BILIRUBIN ADULT 0.3 MG/DL (0.2-1.0)
[2017-01-27] MEDS: cloZAPine 100 MG TAB PO SCH ×2 (09:13→21:12)
[2017-01-27] MEDS: DIVALPROEX SODIUM DELAYED RELEASE 250 MG TAB PO SCH ×3 (09:13→21:13)
--- NOTE | 2017-01-27 10:50 | HHI.PYPN ---
Subjective Chief Complaint: Wandering, suicidal/homicidal threat Remarks Patient seen and examined with nurse. Chart reviewed. Case discussed with nursing staff. Patient remains in behavioral control, although she does continue to respond to internal stimuli at times. She has produced several pages of rambling writing, now on the chart, which I have reviewed. This is largely disconnected phrases, and it is difficult to get a sense of any sort of cohesive narrative or argument. Today on my exam, patient is calm and pleasant. She is somewhat more organized today. She is able to articulate a desire to return home. She denies any SI/HI/AVH. She is tolerating medications well without side effects. No physical complaints. Review of Systems ROS Limitations: Poor Historian Except as stated in HPI: all other systems reviewed are Neg Mental Status Examination Appearance: Appropriate Consciousness: Alert Orientation: Person, Place (at least) Motor Activity: Normal gait, Other (no abnormal motor movements noted) Speech: Unremarkable Language: Adequate Fund of Knowledge: Inadequate Attention and Concentration: Adequate Memory: Unremarkable Mood: Appropriate Affect: Euthymic (childlike) Thought Process & Associations: Circumstantial (chiefly circumstantial, tangential at times) Thought Content: Appropriate Hallucination Type: None Delusion Type: None Suicidal Ideation: No Suicidal Plan: No Suicidal Intention: No Homicidal Ideation: No Homicidal Plan: No Homicidal Intention: No Insight: Poor Judgment: Poor Results Labs Test 01/27/17 07:24 White Blood Count 7.2 TH/MM3 Red Blood Count 4.13 MIL/MM3 Hemoglobin 10.8 GM/DL Hematocrit 33.8 % Mean Corpuscular Volume 81.9 FL Mean Corpuscular Hemoglobin 26.2 PG Mean Corpuscular Hemoglobin Concent 31.9 % Red Cell Distribution Width 14.7 % Platelet Count 295 TH/MM3 Mean Platelet Volume 9.0 FL Neutrophils (%) (Auto) 58.9 % Lymphocytes (%) (Auto) 30.3 % Monocytes (%) (Auto) 10.2 % Eosinophils (%) (Auto) 0.1 % Basophils (%) (Auto) 0.5 % Neutrophils # (Auto) 4.3 TH/MM3 Lymphocytes # (Auto) 2.2 TH/MM3 Monocytes # (Auto) 0.7 TH/MM3 Eosinophils # (Auto) 0.0 TH/MM3 Basophils # (Auto) 0.0 TH/MM3 CBC Comment DIFF FINAL Differential Comment Total Bilirubin 0.3 MG/DL Direct Bilirubin 0.1 MG/DL Indirect Bilirubin 0.2 MG/DL Aspartate Amino Transf (AST/SGOT) 13 U/L Alanine Aminotransferase (ALT/SGPT) 27 U/L Alkaline Phosphatase 90 U/L Ammonia 30 MCMOL/L Total Protein 7.8 GM/DL Albumin 3.5 GM/DL Valproic Acid (Depakene) Level 23 MCG/ML Labs reviewed. ANC remains adequate for Clozaril therapy. Transaminitis resolved. No hyperammonemia. Depakote level subtherapeutic, although the patient has missed a few doses. Vitals/IOs Vital Signs Date Time Temp Pulse Resp B/P (MAP) Pulse Ox O2 Delivery O2 Flow Rate FiO2 01/27/17 06:02 98.1 93 17 124/63 (83) 100 Intake and Output 01/27/17 01/27/17 01/28/17 08:00 16:00 00:00 Intake Total 240 ml Balance 240 ml Assessment & Plan Problem List: (1) Schizophrenia ICD Codes: F20.9 - Schizophrenia, unspecified (2) Cocaine abuse ICD Codes: F14.10 - Cocaine abuse, uncomplicated Status: Acute (3) TBI (traumatic brain injury) ICD Codes: S06.9X9A - Unspecified intracranial injury with loss of consciousness of unspecified duration, initial encounter Status: Chronic Assessment & Plan Patient seems improved with addition of Depakote in the sense that she is less intrusive and more behaviorally appropriate overall. Although Depakote level is likely inaccurate because of missed doses, patient is tolerating this agent well, and dose titration is likely to place the patient comfortably within the therapeutic range. Titrate Depakote 500 mg twice daily. Continue to monitor on the inpatient unit. Continue other medications and care as ordered. Justification for Cont. Inpt. Med changes. Risk for decompensation and less restrictive environment. Discharge Planning Possible discharge home within the next day or 2. Request HC Surrog/Guard Advoc?: No Problem Qualifiers (1) Schizophrenia: Qualified Codes: F20.1 - Disorganized schizophrenia (2) TBI (traumatic brain injury): Qualified Codes: S06.9X9S - Unspecified intracranial injury with loss of consciousness of unspecified duration, sequela Nicolas Huerta MD Jan 27, 2017 10:50
[2017-01-27] MEDS ORDERED: DIVALPROEX SODIUM DELAYED RELEASE 250 MG TAB PO SCH (11:00)
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
[2017-01-27] MEDS ORDERED: cloNIDine HCL 0.1 MG TAB PO PRN (16:00)
[2017-01-27 18:00] VITALS: BP 132/82; PULSE 114; RESP 18; TEMP 98.1; O2SAT 100
[2017-01-27] MEDS: diphenhydrAMINE HCL 50 MG CAP PO SCH (21:12)
[2017-01-28 06:24] VITALS: BP 128/74; PULSE 91; RESP 18; TEMP 97.8; O2SAT 100
[2017-01-28] MEDS: DIVALPROEX SODIUM DELAYED RELEASE 250 MG TAB PO SCH (08:40)
[2017-01-28] MEDS: cloZAPine 100 MG TAB PO SCH (08:41)
--- NOTE | 2017-01-28 10:57 | PD.TTN ---
Patient Problems 1. Discharge planning 2. Medication compliance 3. Knowledge deficit 4. Lack of coping skills Progress Toward Goals Provider Present: Dr. Reji Huerta Provider Input: Pt medication regiment continues to be evaluated including increase in pt Clozaril dose. 01/24/17 Patient has a history of TBI. Patient is somatic, internally stimulated. Patient's medication will be increased. At this time patient meets criteria 01/28/17 Patient is doing well, will discharge patient home. Nurse(s) Present: Quynh Beverly, MARICARMEN Nurse(s) Input: Pt appears to be doing much better though she presents as easily confused and seems to respond to internal stimuli at times though she denies any symptoms. 01/24/17 Patient's nurse Cris reports patient is medication complaint, cooperative, attends groups and performs her ADL's 01/28/17 Patient's nurse Venus reports patient continues to ramble, speaks non senicial statements, med compliant, presents internally stimulated Psychiatric Counselors Present: Fransico Zhang [facility], Ruchi Torres, [facility] Psych Therapist Input: Pt appears calm, cooperative, appropriate, organized, oriented and somewhat intrusive. She denies any symptoms and likely has poor insight into condition and need for care. She appears to be utilizing coping and emotional regulation skills as she has had no outbursts. She is compliant with medication regiment. 01/24/17 Patient presents childlike, intrusive, seclusive preoccupied, affect blunted. patient is alert to person and place but has poor insight into her situation. Patient is medication compliant. Once patient stablizes patient will return home with parents. At this time patient meets criteria. 01/28/17 Patient presents childlike, intrusive, redirectable, affect blunted. Patient continues to present internally stimulated, however patient does present to be at her baseline. Patient is being discharged home to parents. Patient will follow up with [facility]. Group Spec/RT/OT/RAHMAN Present: IMELDA Leong, LACEY Morin Group Spec/RT/OT/RAHMAN Input: Pt attended exercise group yesterday and appears to be responding to internal stimuli at times. 01/24/17 Patient attends 75% of groups. Patient is often seen talking to himself and requires cues to be appropriate in some groups. 01/28/17 Patient attends 75% of groups Discharge Plan SMA Pt will be returning to her home and will be linked with outpatient psychiatric follow up appointment. Documentation Scribe: KACY Daley Elizabeth [facility] Jan 28, 2017 10:57
[2017-01-28] MEDS ORDERED: DIVA250T PO (13:06)
[2017-01-28] MEDS ORDERED: CLOZ100T PO ×2 (13:06)
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
== END 2017-01-28 17:00 | disposition home or self-care (01) | DRG 885 ==
LOC: NEPJ 09:51 → NEDA 17:09 → H270 18:23 → H260 01-22 10:46
PROVIDERS: ADMIT Psychiatry & Neurology Psychiatry; ATTEND Psychiatry & Neurology Psychiatry
DX: F20.9 Schizophrenia, unspecified (principal); R74.0 Nonspecific elevation of levels of transaminase and lactic acid dehydrogenase [LDH]; Z87.820 Personal history of traumatic brain injury; F14.10 Cocaine abuse, uncomplicated; I10 Essential (primary) hypertension; F17.210 Nicotine dependence, cigarettes, uncomplicated; H54.61 Unqualified visual loss, right eye, normal vision left eye; D64.9 Anemia, unspecified
CPT/HCPCS: 80048; 80053; 80061; 80074; 80076; 80159; 80164; 80307; 82140; 83036; 83735; 84703; 85025; 86703; 93005; 96372; G0480; J1200; Q0163

== ENCOUNTER 2017-04-02 20:07 | Inpatient (IN) | payer MEDICARE, OTHER ==
[~2017-04-02] VITALS: Ht 167.6 cm; Wt 103.6 kg
[~2017-04-02 20:07] MED LIST changes: -CLOZ100T3 PO; -CLOZ200T PO; +DIVA250T PO
[2017-04-02 20:30] VITALS: BP 153/79; PULSE 105; RESP 18; TEMP 98.4; O2SAT 100
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
[2017-04-02] MEDS ORDERED: DIVA500T3 PO (20:59)
[2017-04-02] MEDS ORDERED: OLANZapine IM 10 MG VIAL IM ONE (22:15)
[2017-04-02 23:06] VITALS: BP 130/76; PULSE 89; RESP 18; TEMP 98.6; O2SAT 100
[2017-04-03 01:51] LABS: BACTERIA, URINE RARE /hpf; BILIRUBIN, URINE NEG (NEG); BLOOD, URINE NEG (NEG); GLUCOSE,URINE NEG (NEG); KETONE, URINE TRACE mg/dL (NEG); MUCUS URINE MANY /lpf (OCC); NITRITE,URINE NEG (NEG); SQUAMOUS EPITHELIAL CELL URINE 1 /hpf (0-5); URINE COLOR YELLOW (YELLW/STRAW); URINE LEUKOCYTE ESTERASE SMALL (NEG)
[2017-04-03 06:54] VITALS: BP 121/76; PULSE 85; RESP 18; TEMP 98; O2SAT 100
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
[2017-04-03 10:58] VITALS: BP 139/74; PULSE 97; RESP 18; O2SAT 99
[2017-04-03 12:16] LABS: AUTOMATED NEUTROPHIL # 4.3 TH/MM3 (1.8-7.7); BASOPHIL % 0.4 % (0.0-2.0); HEMATOCRIT 34.1 % (35.0-46.0); LYMPH % 31.7 % (9.0-44.0); LYMPHOCYTE # 2.4 TH/MM3 (1.0-4.8); MEAN CELL VOLUME 81.1 FL (80.0-100.0); MEAN CORPUSCULAR HEMOGLOBIN 26.1 PG (27.0-34.0); MEAN CORPUSCULAR HGB CONC 32.2 % (32.0-36.0); MEAN PLATELET VOLUME 8.5 FL (7.0-11.0); MONO % 11.6 % (0.0-8.0); MONOCYTE # 0.9 TH/MM3 (0-0.9); NEUT % 56.3 % (16.0-70.0); PLATELET COUNT 345 TH/MM3 (150-450); RED BLOOD COUNT 4.21 MIL/MM3 (4.00-5.30); RED CELL DISTRIBUTION WIDTH 15.1 % (11.6-17.2); WHITE BLOOD COUNT 7.6 TH/MM3 (4.0-11.0)
[2017-04-03 12:34] LABS: ALBUMIN 3.1 GM/DL (3.4-5.0); ALT (GPT) 24 U/L (10-53); AST (GOT) 28 U/L (15-37); BICARBONATE 26.6 MEQ/L (21.0-32.0); BLOOD UREA NITROGEN 6 MG/DL (7-18); CALCIUM 8.6 MG/DL (8.5-10.1); CHLORIDE 107 MEQ/L (98-107); CREATININE 0.73 MG/DL (0.50-1.00); GLOMERULAR FILTRATION RATE 104 ML/MIN (>89); GLUCOSE,RANDOM 91 MG/DL (74-106); SODIUM (NA) 139 MEQ/L (136-145)
[2017-04-03 12:37] LABS: ALKALINE PHOSPHATASE 84 U/L (45-117); TOTAL BILIRUBIN ADULT 0.2 MG/DL (0.2-1.0); TOTAL PROTEIN 7.4 GM/DL (6.4-8.2)
[2017-04-03] MEDS ORDERED: ACETAMINOPHEN 325 MG TAB PO PRN (14:45)
[2017-04-03] MEDS ORDERED: ALUMINUM/MAGNESIUM/SIMETH 30 ML CUP PO PRN (14:45)
[2017-04-03 16:10] VITALS: BP 165/90; PULSE 97; RESP 16; TEMP 95.7; O2SAT 100
[2017-04-04 06:09] VITALS: BP 138/68; PULSE 87; RESP 18; TEMP 97.4; O2SAT 99
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
[2017-04-04] MEDS ORDERED: LORazepam 2 MG/ML VIAL IM PRN (10:00)
[2017-04-04] MEDS ORDERED: BENZTROPINE MESYLATE 1 MG TAB PO PRN (10:00)
[2017-04-04] MEDS ORDERED: BENZTROPINE MESYLATE 2 MG/2 ML VIAL IM PRN (10:00)
--- NOTE | 2017-04-04 10:53 | PD.TTN ---
Patient Problems 1. Discharge planning 2. Medication compliance 3. Knowledge deficit 4. Lack of coping skills Progress Toward Goals Provider Present: Dr. Reji Huerta Provider Input: 04/04/17 - Dr. Tirado requested this counselor investigate placement options for this patient. Psychiatric Counselors Present: MELECIO Rodrigez Psych Therapist Input: 04/04/17 - Counselor will contact various placement facilities in an effort to appropriately place this patient. Group Spec/RT/OT/RAHMAN Present: IMELDA Leong Group Spec/RT/OT/RAHMAN Input: 04/04/17 - New Patient Discharge Plan SMA 04/04/17 - Per Dr. Huerta's request, this counselor will investigate placement options. Documentation Scribe: MELECIO Rodrigez Date Resolved: Apr 04, 2017 Val Valencia Apr 04, 2017 10:53
[2017-04-04] MEDS ORDERED: LORazepam 1 MG TAB PO PRN (11:00)
[2017-04-04] MEDS: cloZAPine 100 MG TAB PO SCH ×2 (13:51→20:09)
--- NOTE | 2017-04-04 14:42 | EKG ---
Date Performed: 04/04/2017 Time Performed: 10:10:52 PTAGE: 46 years EKG: Sinus rhythm POSSIBLE LEFT ATRIAL ENLARGEMENT BORDERLINE ECG PREVIOUS TRACING : 01/20/2017 16.31 Since the prior tracing, there has been no significant dee DOCTOR: Adry Chau Interpretating Date/Time 04/04/2017 14:37:27
[2017-04-04 18:17] VITALS: BP 144/84; PULSE 105; RESP 18; TEMP 97.8; O2SAT 99
[2017-04-04] MEDS: DIVALPROEX SODIUM E.R. 500 MG TAB PO SCH (20:09)
[2017-04-04] MEDS: diphenhydrAMINE HCL 50 MG CAP PO SCH (20:09)
[2017-04-05 06:01] VITALS: BP 123/73; PULSE 95; RESP 16; TEMP 97.5; O2SAT 95
[2017-04-05] MEDS: cloZAPine 100 MG TAB PO SCH ×2 (08:21→20:30)
[2017-04-05] MEDS: DIVALPROEX SODIUM E.R. 500 MG TAB PO SCH ×2 (08:21→20:30)
[2017-04-05 13:11] LABS: BICARBONATE 27.1 MEQ/L (21.0-32.0); BLOOD UREA NITROGEN 6 MG/DL (7-18); CALCIUM 9.4 MG/DL (8.5-10.1); CHLORIDE 104 MEQ/L (98-107); CHOLESTEROL 179 MG/DL (120-200); CREATININE 0.83 MG/DL (0.50-1.00); GLOMERULAR FILTRATION RATE 90 ML/MIN (>89); GLUCOSE,RANDOM 126 MG/DL (74-106); HDL CHOLESTEROL 52.6 MG/DL (40.0-60.0); LDL CHOLESTEROL 102 MG/DL (0-99); SODIUM (NA) 138 MEQ/L (136-145); TRIGLYCERIDES 124 MG/DL (42-150)
--- NOTE | 2017-04-05 13:42 | PD.PSY.CON ---
Provisional Diagnosis Admission Date Apr 03, 2017 at 14:38 [place] I. 1. Schizophrenia, disorganized type, acute exacerbation 2. Cocaine abuse 3. History of traumatic brain injury [place] II. Deferred History of Present Illness Service Psychiatry Consult Requested By Psychiatry Reason for Consult 2nd Opinion Primary Care Physician Unknown HPI Pt seen and discussed with staff. Chart reviewed. Pt is a 46 YOBF with hx of schizophrenia and cocaine use who was admitted to [facility] [place] under a BA taken out by [employer] stating that she was non compliant wt medications and aggressive with her mother. Staff report that she has been hyperverbal with pressured speech. She has been disorganized and disrobing on unit. Boundaries are poor (pt picked up nurse). She is compliant with medications. She is a very poor historian due to disorganization and psychosis but states that medications are "helping me.". Past Family Social History Coded Allergies: ampicillin (Unverified Allergy, Severe, Hives, 04/02/17) azithromycin (Unverified Allergy, Severe, Hives, 04/02/17) cefepime (Unverified Allergy, Severe, Hives, 04/02/17) ceftaroline fosamil (Unverified Allergy, Severe, Hives, 04/02/17) cephalexin (Unverified Allergy, Severe, Hives, 04/02/17) erythromycin base (Unverified Allergy, Severe, Hives, 04/02/17) neomycin (Unverified Allergy, Severe, Hives, 04/02/17) penicillin G (Unverified Allergy, Severe, Hives, 04/02/17) Past Medical History schizophrenia. Multiple psychiatric admissions. Hx of non compliance Active Scripts Clozapine (Clozaril) 100 Mg Tab, 300 MG PO HS for Mental Health for 15 Days, TAB 1 Refill Prov:Nicolas Huerta MD 01/28/17 Clozapine (Clozaril) 100 Mg Tab, 200 MG PO DAILY for Mental Health for 15 Days, #30 TAB 1 Refill Prov:Nicolas Huerta MD 01/28/17 Diphenhydramine HCl (Diphenhydramine HCl) 50 Mg Cap, 50 MG PO HS for health for 30 Days, #30 CAP Prov:Emre Sanders MD 11/14/16 Reported Medications Divalproex ER (Divalproex ER) 500 Mg Tab, 500 MG PO BID for Control Seizures, # 30 TAB 0 Refills 04/02/[address] (Divalproex DR) 250 Mg Tabdr, 500 MG PO BID for Mental Health for 15 Days, #60 TAB 1 Refill Prov:Nicolas Huerta MD 01/28/17 Current Medications Medications (Trade) Dose Ordered Sig/Jarod Route Start Time Stop Time Status Last Admin (Tylenol) 650 mg Q4H PRN PO 04/03/17 14:45 (Milk Of Magnesia Liq) 30 ml DAILY PRN PO 04/03/17 14:45 (Mag-Al Plus Susp Liq) 30 ml Q6H PRN PO 04/03/17 14:45 (Clozaril) 200 mg DAILY PO 04/04/17 13:00 04/05/17 08:21 (Clozaril) 300 mg HS PO 04/04/17 21:00 04/04/17 20:09 (Benadryl) 50 mg HS PO 04/04/17 21:00 04/04/17 20:09 (Depakote Er) 500 mg BID PO 04/04/17 21:00 04/05/17 08:21 (Ativan) 1 mg Q6H PRN PO 04/04/17 11:00 04/05/17 01:53 (Ativan Inj) 1 mg Q6H PRN IM 04/04/17 10:00 (Cogentin) 1 mg Q12HR PRN PO 04/04/17 10:00 (Cogentin Inj) 1 mg Q12HR PRN IM 04/04/17 10:00 Family Psych History unknown Social History lives with mother Patient's Strengths (min. 2) In a monitored setting. Supportive mother. Physical Exam Vital Signs Vital Signs Date Time Temp Pulse Resp B/P (MAP) Pulse Ox O2 Delivery O2 Flow Rate FiO2 04/05/17 06:01 97.5 95 16 123/73 (90) 95 04/03/17 10:58 Room Air Lab Results Test 04/05/17 12:00 Blood Urea Nitrogen 6 MG/DL Creatinine 0.83 MG/DL Random Glucose 126 MG/DL Calcium Level 9.4 MG/DL Sodium Level 138 MEQ/L Potassium Level 3.7 MEQ/L Chloride Level 104 MEQ/L Carbon Dioxide Level 27.1 MEQ/L Anion Gap 7 MEQ/L Estimat Glomerular Filtration Rate 90 ML/MIN Triglycerides Level 124 MG/DL Cholesterol Level 179 MG/DL LDL Cholesterol 102 MG/DL HDL Cholesterol 52.6 MG/DL Cholesterol/HDL Ratio 3.40 RATIO Mental Status Examination Appearance: Disheveled Consciousness: Alert Orientation: Person, Place Motor Activity: Normal gait Speech: Rapid Language: Other (rambling) Fund of Knowledge: Poor Attention and Concentration: Easily Distracted Memory: Impaired Mood: Good Affect: Labile (childlike) Thought Process & Associations: Disorganized Thought Content: Hallucinations, Delusional Hallucination Type: Other (appears internally stimulated) Delusion Type: Other (grandiose) Suicidal Ideation: No (unreliable to contract for safety) Suicidal Plan: No Suicidal Intention: No Homicidal Ideation: No (unreliable to contract for safety) Homicidal Plan: No Homicidal Intention: No Insight: Poor Judgment: Poor Assessment & Plan Problem List: (1) Schizophrenia ICD Codes: F20.9 - Schizophrenia, unspecified (2) Cocaine abuse ICD Codes: F14.10 - Cocaine abuse, uncomplicated Status: Acute (3) TBI (traumatic brain injury) ICD Codes: S06.9X9A - Unspecified intracranial injury with loss of consciousness of unspecified duration, initial encounter Status: Chronic Assessment & Plan I agree that pt meets criteria for involuntary hospitalization. 2nd opinion paperwork completed Estimated LOS: days Request HC Surrog/Guard Advoc?: Yes Problem Qualifiers (1) Schizophrenia: Qualified Codes: F20.1 - Disorganized schizophrenia (2) TBI (traumatic brain injury): Carrie Sheriff MD Apr 05, 2017 13:42
[2017-04-05 14:19] LABS: HEMOGLOBIN A1C 5.6 % (4.3-6.0)
[2017-04-05 18:13] VITALS: BP 164/111; PULSE 115; RESP 18; TEMP 97.6; O2SAT 99
[2017-04-05] MEDS: diphenhydrAMINE HCL 50 MG CAP PO SCH (20:30)
[2017-04-06 06:18] VITALS: BP 112/60; PULSE 104; RESP 20; TEMP 97.7; O2SAT 100
[2017-04-06] MEDS: cloZAPine 100 MG TAB PO SCH ×2 (08:18→20:22)
[2017-04-06] MEDS: DIVALPROEX SODIUM E.R. 500 MG TAB PO SCH ×2 (08:20→20:22)
--- NOTE | 2017-04-06 10:43 | HHI.PYPN ---
Subjective Chief Complaint: Psychosis Remarks Pt seen and discussed with staff. She continues to engage in disorganized behavior and nonsensical speech. Sleep is poor. She requires a lot of redirections (disrobing on unit) but has been compliant with medications and care. She has participated in unit activities. Mental Status Examination Appearance: Disheveled Consciousness: Alert Orientation: Person, Place Motor Activity: Normal gait Speech: Rapid Language: Other (rambling) Fund of Knowledge: Poor Attention and Concentration: Easily Distracted Memory: Impaired Mood: Good Affect: Labile (childlike) Thought Process & Associations: Disorganized Thought Content: Hallucinations, Delusional Hallucination Type: Other (appears internally stimulated) Delusion Type: Other (grandiose) Suicidal Ideation: No (unreliable to contract for safety) Suicidal Plan: No Suicidal Intention: No Homicidal Ideation: No (unreliable to contract for safety) Homicidal Plan: No Homicidal Intention: No Insight: Poor Judgment: Poor Results Labs Test 04/05/17 12:00 Blood Urea Nitrogen 6 MG/DL Creatinine 0.83 MG/DL Random Glucose 126 MG/DL Calcium Level 9.4 MG/DL Sodium Level 138 MEQ/L Potassium Level 3.7 MEQ/L Chloride Level 104 MEQ/L Carbon Dioxide Level 27.1 MEQ/L Anion Gap 7 MEQ/L Estimat Glomerular Filtration Rate 90 ML/MIN Hemoglobin A1c 5.6 % Triglycerides Level 124 MG/DL Cholesterol Level 179 MG/DL LDL Cholesterol 102 MG/DL HDL Cholesterol 52.6 MG/DL Cholesterol/HDL Ratio 3.40 RATIO Vitals/IOs Vital Signs Date Time Temp Pulse Resp B/P (MAP) Pulse Ox O2 Delivery O2 Flow Rate FiO2 04/06/17 06:18 97.7 104 20 112/60 (77) 100 04/03/17 10:58 Room Air Assessment & Plan Problem List: (1) Schizophrenia ICD Codes: F20.9 - Schizophrenia, unspecified (2) Cocaine abuse ICD Codes: F14.10 - Cocaine abuse, uncomplicated Status: Acute (3) TBI (traumatic brain injury) ICD Codes: S06.9X9A - Unspecified intracranial injury with loss of consciousness of unspecified duration, initial encounter Status: Chronic Assessment & Plan Continue current tx plan. Estimated LOS: days Justification for Cont. Inpt. impairments in self care and psychosis Request HC Surrog/Guard Advoc?: Yes Problem Qualifiers (1) Schizophrenia: Qualified Codes: F20.1 - Disorganized schizophrenia (2) TBI (traumatic brain injury): Carrie Sheriff MD Apr 06, 2017 10:43
[2017-04-06 16:30] VITALS: BP 148/97; PULSE 102; RESP 20; TEMP 98.6; O2SAT 100
[2017-04-06] MEDS: diphenhydrAMINE HCL 50 MG CAP PO SCH (20:21)
[2017-04-07 06:16] VITALS: BP 128/87; PULSE 100; RESP 19; TEMP 98; O2SAT 95
[2017-04-07] MEDS: cloZAPine 100 MG TAB PO SCH ×2 (10:14→21:00)
[2017-04-07] MEDS: DIVALPROEX SODIUM E.R. 500 MG TAB PO SCH ×2 (10:14→21:00)
--- NOTE | 2017-04-07 12:45 | HHI.PYPN ---
Subjective Chief Complaint: Psychosis Remarks Patient seen and examined with nurse. Chart reviewed. Case discussed with nursing staff. Some disorganized behavior over the weekend, disrobing on the unit for example. On my examination today, the patient is calm and cooperative. She is appropriately attired. She remains a little bit disorganized, although this seems improved versus before the weekend. She denies any SI or HI. Denies any AVH. Denies any side effects from medications. No physical complaints. We discussed possibility of arranging for some sort of placement, and the patient seems to be agreeable to this plan. Review of Systems ROS Limitations: Psychotic, Poor Historian Except as stated in HPI: all other systems reviewed are Neg Mental Status Examination Appearance: Appropriate Consciousness: Alert Orientation: Person, Place Motor Activity: Normal gait Speech: Unremarkable Language: Other (somewhat rambling) Fund of Knowledge: Poor Attention and Concentration: Easily Distracted Memory: Impaired Mood: Good Affect: Appropriate Thought Process & Associations: Disorganized (less so today) Hallucination Type: None Delusion Type: None Suicidal Ideation: No (unreliable to contract for safety) Suicidal Plan: No Suicidal Intention: No Homicidal Ideation: No (unreliable to contract for safety) Homicidal Plan: No Homicidal Intention: No Insight: Poor Judgment: Poor Results Labs Labs reviewed. Vitals/IOs Vital Signs Date Time Temp Pulse Resp B/P (MAP) Pulse Ox O2 Delivery O2 Flow Rate FiO2 04/07/17 06:16 98.0 100 19 128/87 (101) 95 04/03/17 10:58 Room Air Assessment & Plan Problem List: (1) Schizophrenia ICD Codes: F20.9 - Schizophrenia, unspecified (2) Cocaine abuse ICD Codes: F14.10 - Cocaine abuse, uncomplicated Status: Acute (3) TBI (traumatic brain injury) ICD Codes: S06.9X9A - Unspecified intracranial injury with loss of consciousness of unspecified duration, initial encounter Status: Chronic Assessment & Plan Depakote and ammonia level Friday. To consider adjusting the dose of Depakote based on the level. Continue current psychotropics as ordered. Continue to monitor on the inpatient unit. Continue other medications and care as ordered. Justification for Cont. Inpt. Impairment in self-care. Risk for decompensation in less restrictive environment. Discharge Planning Possible placement. Request HC Surrog/Guard Advoc?: Yes Problem Qualifiers (1) Schizophrenia: Qualified Codes: F20.1 - Disorganized schizophrenia (2) TBI (traumatic brain injury): Nicolas Huerta MD Apr 07, 2017 12:45
[2017-04-07 17:45] VITALS: BP 131/79; PULSE 107; RESP 19; TEMP 99.5; O2SAT 96
[2017-04-07] MEDS: diphenhydrAMINE HCL 50 MG CAP PO SCH (21:00)
[2017-04-08 06:08] VITALS: BP 126/74; PULSE 100; RESP 18; TEMP 97; O2SAT 100
[2017-04-08] MEDS: cloZAPine 100 MG TAB PO SCH ×2 (09:00→21:00)
[2017-04-08] MEDS: DIVALPROEX SODIUM E.R. 500 MG TAB PO SCH ×2 (09:13→21:00)
--- NOTE | 2017-04-08 09:33 | HHI.PYPN ---
Subjective Chief Complaint: Psychosis Remarks Patient seen and examined with nurse. Chart reviewed. Case discussed with nursing staff. Case discussed in treatment team. On my examination today, the patient seems somewhat more relevant in conversation. She is asking about her Depakote level, which will be drawn tomorrow. Remains in fairly good spirits. Denies AVH. Denies side effects from medications. No physical complaints. Remains agreeable to some sort of placement, and I have instructed the counselor to continue work on this. Review of Systems ROS Limitations: Poor Historian Except as stated in HPI: all other systems reviewed are Neg Mental Status Examination Appearance: Appropriate Consciousness: Alert Orientation: Person, Place (at least) Motor Activity: Other (no motor abnormalities noted) Speech: Unremarkable Language: Other (remains a little rambling) Fund of Knowledge: Poor Attention and Concentration: Easily Distracted Memory: Impaired Mood: Good Affect: Appropriate Thought Process & Associations: Disorganized (less so today) Hallucination Type: None Delusion Type: None Suicidal Ideation: No Homicidal Ideation: No Insight: Poor Judgment: Poor Results Labs Labs reviewed. No new labs. Vitals/IOs Vital Signs Date Time Temp Pulse Resp B/P (MAP) Pulse Ox O2 Delivery O2 Flow Rate FiO2 04/08/17 06:08 97.0 100 18 126/74 (91) 100 Assessment & Plan Problem List: (1) Schizophrenia ICD Codes: F20.9 - Schizophrenia, unspecified (2) Cocaine abuse ICD Codes: F14.10 - Cocaine abuse, uncomplicated Status: Acute (3) TBI (traumatic brain injury) ICD Codes: S06.9X9A - Unspecified intracranial injury with loss of consciousness of unspecified duration, initial encounter Status: Chronic Assessment & Plan Continue current psychotropics as ordered. Follow-up Depakote and ammonia level ordered for tomorrow morning. Continue other medications and care as ordered. Justification for Cont. Inpt. Risk for decompensation in less restrictive environment. Discharge Planning Placement Request HC Surrog/Guard Advoc?: Yes Problem Qualifiers (1) Schizophrenia: Qualified Codes: F20.1 - Disorganized schizophrenia (2) TBI (traumatic brain injury): Nicolas Huerta MD Apr 08, 2017 09:33
--- NOTE | 2017-04-08 11:55 | PD.TTN ---
Patient Problems 1. Discharge planning 2. Medication compliance 3. Knowledge deficit 4. Lack of coping skills Progress Toward Goals Provider Present: Dr. Reji Huerta Provider Input: 04/04/17 - Dr. Tirado requested this counselor investigate placement options for this patient. 04/08/17 Patient is doing better. Patient is chronic and is requiring a locked placement. Nurse(s) Input: 04/08/17 Patient's nurse Taye reports patient is quiet on unit. Medication compliant Psychiatric Counselors Present: MELECIO Powers, LESLY RodrigezLevy Psych Therapist Input: 04/04/17 - Counselor will contact various placement facilities in an effort to appropriately place this patient. 04/08/17 Patient presents childlike, cooperative but constricted. Patient denies sucidial and homicidal ideation. Patient is alert to person, place, but has poor insight. Patient denies hearing voices, however patient is seen talking to herself. Patient made good eye contact. Patient's speech is clear, disorganized. Patient is in need of a locked facility. Group Spec/RT/OT/RAHMAN Present: IMELDA Leong Group Spec/RT/OT/RAHMAN Input: 04/04/17 - New Patient 04/08/17 Patient attends select group activities. Patient membles to herself and has a difficult time socializing with peers. Discharge Plan [facility] 04/04/17 - Per Dr. Huerta's request, this counselor will investigate placement options. Documentation Scribe: MELECIO Rodrigez Date Resolved: Apr 04, 2017 Ruchi Torres RADHA Apr 08, 2017 11:55
[2017-04-08 18:46] VITALS: BP 133/83; PULSE 94; RESP 18; TEMP 96.7; O2SAT 100
[2017-04-08] MEDS: diphenhydrAMINE HCL 50 MG CAP PO SCH (21:00)
[2017-04-09 06:04] VITALS: BP 157/73; PULSE 106; RESP 20; TEMP 97.5; O2SAT 100
--- NOTE | 2017-04-09 09:15 | HHI.PYPN ---
Subjective Chief Complaint: Psychosis Remarks Patient seen and examined. Chart reviewed. Case discussed with nursing staff. No behavioral issues on the unit. On my examination today, the patient is in good spirits. She greets me with a "Hi Doc! Christina donovan'?" Denies SI/HI. Denies AVH. No medication side effects. No physical complaints. Review of Systems ROS Limitations: Poor Historian Except as stated in HPI: all other systems reviewed are Neg Mental Status Examination Appearance: Appropriate Consciousness: Alert Orientation: Person, Place (at least) Motor Activity: Other (no abnormal motor movements noted) Speech: Unremarkable Language: Adequate Fund of Knowledge: Inadequate Attention and Concentration: Easily Distracted Memory: Impaired Mood: Good Affect: Appropriate (somewhat childlike), Euthymic Thought Process & Associations: Circumstantial Thought Content: Appropriate Hallucination Type: None Delusion Type: None Suicidal Ideation: No Homicidal Ideation: No Insight: Poor Judgment: Poor Results Labs Item Value Date Time Ammonia 14 MCMOL/L 04/09/17 1130 Valproic Acid (Depakene) Level 85 MCG/ML 04/09/17 1130 Labs reviewed. Depakote level within the therapeutic range. Ammonia level not elevated. Vitals/IOs Vital Signs Date Time Temp Pulse Resp B/P (MAP) Pulse Ox O2 Delivery O2 Flow Rate FiO2 04/09/17 06:04 97.5 106 20 157/73 (101) 100 Assessment & Plan Problem List: (1) Schizophrenia ICD Codes: F20.9 - Schizophrenia, unspecified (2) Cocaine abuse ICD Codes: F14.10 - Cocaine abuse, uncomplicated Status: Acute (3) TBI (traumatic brain injury) ICD Codes: S06.9X9A - Unspecified intracranial injury with loss of consciousness of unspecified duration, initial encounter Status: Chronic Assessment & Plan Continue Depakote and clozapine as ordered. Transfer to lower acuity unit. Continue other medications and care as ordered. Justification for Cont. Inpt. Risk for decompensation in less restrictive environment. Discharge Planning Placement. Case discussed with counselor. Request HC Surrog/Guard Advoc?: Yes Problem Qualifiers (1) Schizophrenia: Qualified Codes: F20.1 - Disorganized schizophrenia (2) TBI (traumatic brain injury): Nicolas Huerta MD Apr 09, 2017 09:15
[2017-04-09] MEDS: DIVALPROEX SODIUM E.R. 500 MG TAB PO SCH ×2 (09:23→21:22)
[2017-04-09] MEDS: cloZAPine 100 MG TAB PO SCH ×2 (09:23→21:21)
[2017-04-09 18:05] VITALS: BP_SYST 132; PULSE 66; RESP 18; TEMP 97.9; O2SAT 99
[2017-04-09] MEDS: diphenhydrAMINE HCL 50 MG CAP PO SCH (21:21)
[2017-04-10 05:20] VITALS: BP 115/64; PULSE 82; RESP 18; TEMP 98; O2SAT 98
[2017-04-10] MEDS: cloZAPine 100 MG TAB PO SCH ×2 (08:03→20:07)
[2017-04-10] MEDS: DIVALPROEX SODIUM E.R. 500 MG TAB PO SCH ×2 (08:03→20:06)
--- NOTE | 2017-04-10 12:04 | HHI.PYPN ---
Subjective Chief Complaint: Psychosis Remarks Patient seen and case discussed with nursing staff. No behavioral issues on the inpatient unit. For me today, patient is in good spirits. She remains fairly childlike. No mood or psychotic symptoms. No side effects from medications. No physical complaints. Review of Systems ROS Limitations: Poor Historian Except as stated in HPI: all other systems reviewed are Neg Mental Status Examination Appearance: Appropriate Consciousness: Alert Orientation: Person, Place Motor Activity: Other (no motoric abnormalities noted) Speech: Unremarkable Language: Adequate Fund of Knowledge: Inadequate Attention and Concentration: Easily Distracted Memory: Impaired Mood: Good Affect: Euthymic (childlike) Thought Process & Associations: Circumstantial Thought Content: Appropriate Hallucination Type: None Delusion Type: None Suicidal Ideation: No (no SI voiced) Homicidal Ideation: No (no HI voiced) Insight: Poor Judgment: Poor Results Labs Labs reviewed. Vitals/IOs Vital Signs Date Time Temp Pulse Resp B/P (MAP) Pulse Ox O2 Delivery O2 Flow Rate FiO2 04/10/17 05:20 98.0 82 18 115/64 (81) 98 Assessment & Plan Problem List: (1) Schizophrenia ICD Codes: F20.9 - Schizophrenia, unspecified (2) Cocaine abuse ICD Codes: F14.10 - Cocaine abuse, uncomplicated Status: Acute (3) TBI (traumatic brain injury) ICD Codes: S06.9X9A - Unspecified intracranial injury with loss of consciousness of unspecified duration, initial encounter Status: Chronic Assessment & Plan Continue clozapine and Depakote as ordered. Patient is doing well with these agents. Check a CBC in the morning to ensure that ANC remains adequate for clozapine therapy. Continue to monitor on the inpatient unit. Continue other medications and care as ordered. Patient's case was presented to the [place] act court, and the patient was retained on the unit by the account review specialist with patient's mother to serve as guardian advocate. Justification for Cont. Inpt. High risk for decompensation in less restrictive environment. Discharge Planning Counselor is working on placement for this patient in a monitored facility from which she cannot wander. Request HC Surrog/Guard Advoc?: Yes Problem Qualifiers (1) Schizophrenia: Qualified Codes: F20.1 - Disorganized schizophrenia (2) TBI (traumatic brain injury): Nicolas Huerta MD Apr 10, 2017 12:04
[2017-04-10] MEDS: MAGNESIUM HYDROXIDE SUSP 30 ML CUP PO PRN (15:51)
[2017-04-10 17:36] VITALS: BP 148/82; PULSE 93; RESP 20; TEMP 97.9
[2017-04-10] MEDS: diphenhydrAMINE HCL 50 MG CAP PO SCH (20:06)
[2017-04-11 05:01] VITALS: BP 117/69; PULSE 99; RESP 16; TEMP 98.2; O2SAT 98
[2017-04-11] MEDS: DIVALPROEX SODIUM E.R. 500 MG TAB PO SCH ×2 (09:12→22:17)
[2017-04-11] MEDS: cloZAPine 100 MG TAB PO SCH ×2 (09:15→22:17)
[2017-04-11] MEDS: MAGNESIUM HYDROXIDE SUSP 30 ML CUP PO PRN (09:15)
[2017-04-11 10:07] LABS: AUTOMATED NEUTROPHIL # 4.5 TH/MM3 (1.8-7.7); BASOPHIL % 0.6 % (0.0-2.0); HEMATOCRIT 32.4 % (35.0-46.0); HEMOGLOBIN 10.4 GM/DL (11.6-15.3); LYMPH % 26.2 % (9.0-44.0); LYMPHOCYTE # 1.9 TH/MM3 (1.0-4.8); MEAN CELL VOLUME 79.2 FL (80.0-100.0); MEAN CORPUSCULAR HEMOGLOBIN 25.4 PG (27.0-34.0); MONO % 10.6 % (0.0-8.0); MONOCYTE # 0.8 TH/MM3 (0-0.9); NEUT % 62.6 % (16.0-70.0); PLATELET COUNT 377 TH/MM3 (150-450); RED BLOOD COUNT 4.09 MIL/MM3 (4.00-5.30); RED CELL DISTRIBUTION WIDTH 15.7 % (11.6-17.2); WHITE BLOOD COUNT 7.2 TH/MM3 (4.0-11.0)
--- NOTE | 2017-04-11 14:16 | HHI.PYPN ---
Subjective Chief Complaint: Schizophrenia, cocaine abuse, TBI Remarks Reviewed electronic medical record, labs, discussed case with staff. Per patient's nurse, she has been observed in her room talking to her cells. She did request a as needed Ativan at around 2 AM but after that staff reports she slept well. Follow-up in patient's room with nurse present. Patient states she is in good spirits and took a shower this morning. Her speech is still rapid, pressured, and somewhat disorganized. She denies any side effects from the medication. Mental Status Examination Appearance: Appropriate Consciousness: Alert Orientation: Person, Place Motor Activity: Other (no motoric abnormalities noted) Speech: Unremarkable Language: Adequate Fund of Knowledge: Inadequate Attention and Concentration: Easily Distracted Memory: Impaired Mood: Good Affect: Euthymic (childlike) Thought Process & Associations: Disorganized Thought Content: Appropriate Hallucination Type: None Delusion Type: None Suicidal Ideation: No (no SI voiced) Homicidal Ideation: No (no HI voiced) Insight: Poor Judgment: Poor Results Labs Test 04/11/17 08:55 White Blood Count 7.2 TH/MM3 Red Blood Count 4.09 MIL/MM3 Hemoglobin 10.4 GM/DL Hematocrit 32.4 % Mean Corpuscular Volume 79.2 FL Mean Corpuscular Hemoglobin 25.4 PG Mean Corpuscular Hemoglobin Concent 32.0 % Red Cell Distribution Width 15.7 % Platelet Count 377 TH/MM3 Mean Platelet Volume 9.0 FL Neutrophils (%) (Auto) 62.6 % Lymphocytes (%) (Auto) 26.2 % Monocytes (%) (Auto) 10.6 % Eosinophils (%) (Auto) 0.0 % Basophils (%) (Auto) 0.6 % Neutrophils # (Auto) 4.5 TH/MM3 Lymphocytes # (Auto) 1.9 TH/MM3 Monocytes # (Auto) 0.8 TH/MM3 Eosinophils # (Auto) 0.0 TH/MM3 Basophils # (Auto) 0.0 TH/MM3 CBC Comment DIFF FINAL Differential Comment Vitals/IOs Vital Signs Date Time Temp Pulse Resp B/P (MAP) Pulse Ox O2 Delivery O2 Flow Rate FiO2 04/11/17 05:01 98.2 99 16 117/69 (85) 98 Assessment & Plan Problem List: (1) Schizophrenia ICD Codes: F20.9 - Schizophrenia, unspecified (2) Cocaine abuse ICD Codes: F14.10 - Cocaine abuse, uncomplicated Status: Acute (3) TBI (traumatic brain injury) ICD Codes: S06.9X9A - Unspecified intracranial injury with loss of consciousness of unspecified duration, initial encounter Status: Chronic Assessment & Plan Estimated LOS: Patient will remain admitted, and continue with treatment plan until psychiatrically stabilized. Justification for Cont. Inpt. Moving on this patient to a lower level of care would likely result in decompensation. Request HC Surrog/Guard Advoc?: Yes Problem Qualifiers (1) Schizophrenia: Qualified Codes: F20.1 - Disorganized schizophrenia (2) TBI (traumatic brain injury): Eunice Anne Apr 11, 2017 14:16
[2017-04-11 17:35] VITALS: BP 133/70; PULSE 111; RESP 16; TEMP 97.5; O2SAT 98
[2017-04-11] MEDS: diphenhydrAMINE HCL 50 MG CAP PO SCH (22:17)
[2017-04-12 05:42] VITALS: BP 102/52; PULSE 99; RESP 18; TEMP 97.6; O2SAT 100
[2017-04-12] MEDS: cloZAPine 100 MG TAB PO SCH ×2 (09:20→20:49)
[2017-04-12] MEDS: DIVALPROEX SODIUM E.R. 500 MG TAB PO SCH ×2 (09:21→20:49)
--- NOTE | 2017-04-12 12:54 | HHI.PYPN ---
Subjective Chief Complaint: Schizophrenia, cocaine abuse, TBI Remarks Patient was seen and case discussed with nursing. Patient continues to have poor insight. She is seen talking to herself and then denies it when questioned. Mildly irritable. Compliant with medications. Behaving well on the unit Mental Status Examination Appearance: Appropriate Consciousness: Alert Orientation: Person, Place Motor Activity: Other (no motoric abnormalities noted) Speech: Unremarkable Language: Adequate Fund of Knowledge: Inadequate Attention and Concentration: Easily Distracted Memory: Impaired Mood: Good Affect: Euthymic (childlike) Thought Process & Associations: Disorganized Thought Content: Appropriate Hallucination Type: None Delusion Type: Other (responding to internal stimuli) Suicidal Ideation: No (no SI voiced) Homicidal Ideation: No (no HI voiced) Insight: Poor Judgment: Poor Results Vitals/IOs Vital Signs Date Time Temp Pulse Resp B/P (MAP) Pulse Ox O2 Delivery O2 Flow Rate FiO2 04/12/17 05:42 97.6 99 18 102/52 (69) 100 Assessment & Plan Problem List: (1) Schizophrenia ICD Codes: F20.9 - Schizophrenia, unspecified (2) Cocaine abuse ICD Codes: F14.10 - Cocaine abuse, uncomplicated Status: Acute (3) TBI (traumatic brain injury) ICD Codes: S06.9X9A - Unspecified intracranial injury with loss of consciousness of unspecified duration, initial encounter Status: Chronic Assessment & Plan Continue current treatment plan Justification for Cont. Inpt. Patient would decompensate in a less restrictive setting Request HC Surrog/Guard Advoc?: Yes Problem Qualifiers (1) Schizophrenia: Qualified Codes: F20.1 - Disorganized schizophrenia (2) TBI (traumatic brain injury): Robbie Jaffe DO Apr 12, 2017 12:54
[2017-04-12 18:11] VITALS: BP 147/84; PULSE 112; RESP 18; TEMP 97.7; O2SAT 98
[2017-04-12] MEDS: diphenhydrAMINE HCL 50 MG CAP PO SCH (20:49)
[2017-04-13 04:49] VITALS: BP 138/81; PULSE 94; RESP 16; TEMP 98; O2SAT 98
[2017-04-13] MEDS: DIVALPROEX SODIUM E.R. 500 MG TAB PO SCH ×2 (08:49→20:38)
[2017-04-13] MEDS: cloZAPine 100 MG TAB PO SCH ×2 (08:50→20:38)
--- NOTE | 2017-04-13 11:35 | HHI.PYPN ---
Subjective Chief Complaint: Schizophrenia, cocaine abuse, TBI Remarks Patient was seen and case discussed with nursing. Patient continues to have poor insight into her admission and mental health. She is consistently seen talking to herself by nursing but refuses that behavior during the interview. Perseverative on discharge. Says she is "a little depressed." Denies auditory visual hallucinations. Compliant with medications. Mental Status Examination Appearance: Appropriate Consciousness: Alert Orientation: Person, Place Motor Activity: Other (no motoric abnormalities noted) Speech: Unremarkable Language: Adequate Fund of Knowledge: Inadequate Attention and Concentration: Easily Distracted Memory: Impaired Mood: Good Affect: Euthymic (childlike) Thought Process & Associations: Disorganized Thought Content: Other (responding to internal stimuli) Hallucination Type: None Delusion Type: Other (responding to internal stimuli) Suicidal Ideation: No (no SI voiced) Suicidal Plan: No Suicidal Intention: No Homicidal Ideation: No (no HI voiced) Homicidal Plan: No Homicidal Intention: No Insight: Poor Judgment: Poor Results Vitals/IOs Vital Signs Date Time Temp Pulse Resp B/P (MAP) Pulse Ox O2 Delivery O2 Flow Rate FiO2 04/13/17 04:49 98.0 94 16 138/81 (100) 98 Assessment & Plan Problem List: (1) Schizophrenia ICD Codes: F20.9 - Schizophrenia, unspecified (2) Cocaine abuse ICD Codes: F14.10 - Cocaine abuse, uncomplicated Status: Acute (3) TBI (traumatic brain injury) ICD Codes: S06.9X9A - Unspecified intracranial injury with loss of consciousness of unspecified duration, initial encounter Status: Chronic Assessment & Plan Continue current treatment plan Justification for Cont. Inpt. Patient will decompensate in a less restrictive setting Request HC Surrog/Guard Advoc?: Yes Problem Qualifiers (1) Schizophrenia: Qualified Codes: F20.1 - Disorganized schizophrenia (2) TBI (traumatic brain injury): Robbie Jaffe DO Apr 13, 2017 11:34
[2017-04-13 16:35] VITALS: BP 117/79; PULSE 96; RESP 18; TEMP 98.1; O2SAT 99
[2017-04-13] MEDS: diphenhydrAMINE HCL 50 MG CAP PO SCH (20:38)
[2017-04-14 05:22] VITALS: BP 137/78; PULSE 94; RESP 18; TEMP 98.1; O2SAT 98
[2017-04-14] MEDS: DIVALPROEX SODIUM E.R. 500 MG TAB PO SCH ×2 (09:06→20:25)
[2017-04-14] MEDS: cloZAPine 100 MG TAB PO SCH ×2 (09:07→20:25)
--- NOTE | 2017-04-14 13:14 | HHI.PYPN ---
Subjective Chief Complaint: Schizophrenia, cocaine abuse, TBI Remarks Patient seen and examined with nurse. Chart reviewed. Case discussed with nursing staff. On my examination today, the patient remains in good spirits. She is quite childlike. She denies any SI or HI. Denies AVH. Denies side effects from medications. No physical complaints. Review of Systems ROS Limitations: Poor Historian Except as stated in HPI: all other systems reviewed are Neg Mental Status Examination Appearance: Appropriate Consciousness: Alert Orientation: Person, Place Motor Activity: Other (no abnormal motor movements noted) Speech: Unremarkable Language: Adequate Fund of Knowledge: Inadequate Attention and Concentration: Easily Distracted Memory: Impaired Mood: Good Affect: Euthymic (remains quite childlike) Thought Process & Associations: Disorganized Thought Content: Appropriate Hallucination Type: None Delusion Type: None, Other (responding to internal stimuli) Suicidal Ideation: No Suicidal Plan: No Suicidal Intention: No Homicidal Ideation: No Homicidal Plan: No Homicidal Intention: No Insight: Poor Judgment: Poor Results Labs Labs reviewed. No new labs. Vitals/IOs Vital Signs Date Time Temp Pulse Resp B/P (MAP) Pulse Ox O2 Delivery O2 Flow Rate FiO2 04/14/17 05:22 98.1 94 18 137/78 (97) 98 Assessment & Plan Problem List: (1) Schizophrenia ICD Codes: F20.9 - Schizophrenia, unspecified (2) Cocaine abuse ICD Codes: F14.10 - Cocaine abuse, uncomplicated Status: Acute (3) TBI (traumatic brain injury) ICD Codes: S06.9X9A - Unspecified intracranial injury with loss of consciousness of unspecified duration, initial encounter Status: Chronic Assessment & Plan Continue current psychotropic medications as ordered. Continue to monitor on the inpatient unit. Continue other care as ordered. Justification for Cont. Inpt. Risk for decompensation in less restrictive environment. Discharge Planning Counselor working on placement. Case discussed with counselor. Request HC Surrog/Guard Advoc?: Yes Problem Qualifiers (1) Schizophrenia: Qualified Codes: F20.1 - Disorganized schizophrenia (2) TBI (traumatic brain injury): Nicolas Huerta MD Apr 14, 2017 13:14
[2017-04-14 17:37] VITALS: BP 161/80; PULSE 92; RESP 18; TEMP 97.6; O2SAT 99
[2017-04-14] MEDS: diphenhydrAMINE HCL 50 MG CAP PO SCH (20:24)
[2017-04-15 05:53] VITALS: BP 143/63; PULSE 63; RESP 16; TEMP 98.2
[2017-04-15] MEDS: cloZAPine 100 MG TAB PO SCH (08:03)
[2017-04-15] MEDS: DIVALPROEX SODIUM E.R. 500 MG TAB PO SCH (08:03)
[2017-04-15] MEDS ORDERED: DIPH50CA PO (08:55)
[2017-04-15] MEDS ORDERED: CLOZ100T PO ×2 (08:55)
[2017-04-15] MEDS ORDERED: DIVA500T3 PO (08:55)
--- NOTE | 2017-04-15 08:55 | HHI.DS ---
Psychiatry Discharge Summary Inpatient Psychiatric care?: Yes Advance Directive: No Reason Not Provided: Due to Patient Condition Mental Health AdvanceDirective: No Health Care Proxy: No Admission Admission Date Apr 03, 2017 at 14:38 Admission Diagnosis: (1) Schizophrenia ICD Code: F20.9 - Schizophrenia, unspecified (2) Cocaine abuse ICD Code: F14.10 - Cocaine abuse, uncomplicated (3) TBI (traumatic brain injury) ICD Code: S06.9X9A - Unspecified intracranial injury with loss of consciousness of unspecified duration, initial encounter Brief History Ms. Yee is a 46-year-old female with a history of schizophrenia and cocaine use disorder who presents under a [place] act by law enforcement alleging that the patient has been refusing medications and has been aggressive with her mother. Patient is well known to the psychiatric service here and was most recently admitted to [facility] under my care in January of last year. Patient seen and examined with nurse. Chart reviewed. Case discussed with nursing staff. On my examination today, the patient presents as disheveled and disorganized. When I ask about the circumstances of her presentation here she tells me "I wanted to come home. I'm no fool, thanks for talking." She is fairly childlike and intrusive as I am trying to round on other patients. Mood is "great, can't get any better." She is a little bit distractible but no other hypomanic or manic symptoms noted. She denies any audiovisual hallucinations but appears internally stimulated. She denies any suicidal or homicidal ideation is unreliable to contract for safety in her present state. She slept well overnight per her report. She tells me "God created man, and God created woman. I am a God myself." No other delusional material. Remainder of the psychiatric ROS is negative. No physical complaints. I am unable to obtain any past psychiatric, family, chemical dependency or social history from the patient because of her degree of thought disorganization. I did obtain collateral information from the patient's mother, Rosette Yee. She notes that the patient has been nonadherent with medications. She is willing to act as healthcare surrogate/GA. She is supportive of some sort of long-term placement for the patient. She is in agreement with the treatment plan as outlined below. Tobacco Use In Past 30 Days: No Tobacco Past 30 Days Alcohol Use: Never Hospital Course Patient was admitted to a locked, inpatient psychiatric unit. Appropriate precautions were in place throughout patient's hospital stay. Patient was seen and examined on the unit by psychiatry and also visited by counselor. Psychotropic medications were adjusted. Patient tolerated medications well without side effects. Patient had improvement in presenting psychiatric symptomatology during the course of her hospital stay. There was no evidence of any suicidality or homicidality on the inpatient unit. The patient remained in behavioral control. Counselor has arranged for placement for the patient, and she has a bed available today per counselor. On the day of discharge: Patient seen and examined with nurse. Chart reviewed. Case discussed with nursing staff. No behavioral issues noted overnight. Case discussed in treatment team. On my examination today, the patient is in good spirits. She is agreeable to going to facility today and feels ready to leave the hospital. She denies any suicidal or homicidal ideation, intent or plan on direct questioning and contracts for safety. Thought process more organized today although she remains little circumstantial. Denies any audiovisual hallucinations. No delusional material. There is no evidence of any impairment in reality construction at this time. No depressive or hypomanic/ manic symptoms. She denies side effects from medications. No physical complaints. Suicide and violence risk assessment on day of discharge both suggest lower imminent risk, and the patient's level of function is adequate for planned level of outpatient care. Patient has maximized benefit from this inpatient psychiatric hospital stay and will be discharged today with psychiatric follow-up as arranged by counselor. Patient is also to follow-up with primary care. I have counseled the patient to abstain from substances of abuse. I have counseled the patient to return to the psychiatric emergency room for any concerning psychiatric symptoms as part of the general safety plan. Results Blood Pressure 143 / 63 Vital Signs Date Time Temp Pulse Resp B/P (MAP) Pulse Ox O2 Delivery O2 Flow Rate FiO2 04/15/17 05:53 98.2 63 16 143/63 (89) 04/14/17 17:37 99 Laboratory Results Test 04/05/17 12:00 04/09/17 11:30 Cholesterol Level 179 MG/DL (120-200) HDL Cholesterol 52.6 MG/DL (40.0-60.0) Hemoglobin A1c 5.6 % (4.3-6.0) LDL Cholesterol 102 MG/DL (0-99) Triglycerides Level 124 MG/DL (42-150) Valproic Acid (Depakene) Level 85 MCG/ML (50-100) Summary of Procedures None done Imaging None done Pending results at discharge: No Medications # of Antipsychotic meds at D/C: 1 Approp Antipsych med options 1 - Minimum of three failed multiple trials of monotherapy. 2 - Documented plan to taper to monotherapy due to previous use of multiple meds OR cross-taper in progress at D/C. 3 - Documentation of augmentation of Clozapine. 4 - Justification other than those listed in allowable values 1-3, document here : Discharge Discharge Date: Apr 15, 2017 Discharge Diagnosis: (1) Schizophrenia Diagnosis: Principal (stabilized) ICD Code: F20.9 - Schizophrenia, unspecified (2) Cocaine abuse Diagnosis: Secondary ICD Code: F14.10 - Cocaine abuse, uncomplicated (3) TBI (traumatic brain injury) Diagnosis: Secondary ICD Code: S06.9X9A - Unspecified intracranial injury with loss of consciousness of unspecified duration, initial encounter Status: Chronic Pt Condition on Discharge: Stable Discharge Disposition: Trnsfr to Other Facility Discharge Instructions Diet Instructions: As Tolerated, No Restrictions Activities you can perform: Weight Bearing as [place] Scheduled Appointment: as per counselor's notes New Orders: CBC WITH DIFF - 1 Week Continued Medications: Clozapine (Clozaril) 100 Mg Tab 200 MG PO DAILY for Mental Health for 15 Days, TAB 1 Refill (This prescription has been renewed) Clozapine (Clozaril) 100 Mg Tab 300 MG PO HS for Mental Health for 15 Days, TAB 1 Refill (This prescription has been renewed) Diphenhydramine HCl (Diphenhydramine HCl) 50 Mg Cap 50 MG PO HS for Mental Health for 15 Days, CAP 1 Refill (This prescription has been renewed) Divalproex ER (Divalproex ER) 500 Mg Tab 500 MG PO BID for Mental Health for 15 Days, TAB 1 Refill (This prescription has been renewed) Discharge Time <= 30 minutes Mental Status Examination Appearance: Appropriate Consciousness: Alert Orientation: Person, Place, Date/Time Motor Activity: Normal gait, Other (no motor abnormalities noted) Speech: Unremarkable Language: Adequate Fund of Knowledge: Inadequate Attention and Concentration: Easily Distracted Memory: Impaired Mood: Appropriate, Good Affect: Appropriate, Euthymic (remains quite childlike) Thought Process & Associations: Circumstantial Thought Content: Appropriate Hallucination Type: None Delusion Type: None Suicidal Ideation: No Suicidal Plan: No Suicidal Intention: No Homicidal Ideation: No Homicidal Plan: No Homicidal Intention: No Insight: Poor (chronic condition) Judgment: Poor (chronic condition) Discharge/Advance Care Plan Health Problems: (1) Schizophrenia (2) Cocaine abuse (3) TBI (traumatic brain injury) Goals to promote your health * To prevent worsening of your condition and complications * To maintain your health at the optimal level Directions to meet your goals Take your medications as prescribed Follow your dietary instruction Follow activity as directed Keep your appointments as scheduled Take your immunizations and boosters as scheduled If your symptoms worsen call your PCP, if no PCP go to Urgent Care Center or Emergency Room For 02/09 questions related to your inpatient stay or results of tests pending at discharge, please contact Dr. Nicolas Huerta at Smoking is Dangerous to Your Health. Avoid second hand smoking Problem Qualifiers (1) Schizophrenia: Qualified Codes: F20.1 - Disorganized schizophrenia (2) TBI (traumatic brain injury): Nicolas Huerta MD Apr 15, 2017 08:55
== END 2017-04-15 10:35 | disposition short-term general hospital (02) | DRG 885 ==
LOC: NEPJ 20:07 → NEDA 04-03 14:38 → H270 04-03 15:07 → H260 04-09 09:45
PROVIDERS: ADMIT Psychiatry & Neurology Psychiatry; ATTEND Psychiatry & Neurology Psychiatry
DX: F20.1 Disorganized schizophrenia (principal); R56.9 Unspecified convulsions; I10 Essential (primary) hypertension; F32.9 Major depressive disorder, single episode, unspecified; F41.9 Anxiety disorder, unspecified; F14.10 Cocaine abuse, uncomplicated; F12.90 Cannabis use, unspecified, uncomplicated; F17.210 Nicotine dependence, cigarettes, uncomplicated; Z87.820 Personal history of traumatic brain injury; Z91.14 Patient's other noncompliance with medication regimen; Z79.899 Other long term (current) drug therapy
CPT/HCPCS: 80048; 80053; 80061; 80164; 80307; 81001; 82140; 83036; 84703; 85025; 93005; 96372; Q0163

== ENCOUNTER 2017-05-17 09:35 | Emergency (ER) | payer MEDICARE, OTHER ==
[~2017-05-17] VITALS: Ht 165.1 cm; Wt 80.0 kg
[~2017-05-17 09:35] MED LIST changes: -DIVA250T PO; +DIVA500T3 PO
[2017-05-17 09:53] VITALS: BP 133/80; PULSE 97; RESP 16; TEMP 98; O2SAT 100
[2017-05-17 13:35] LABS: AUTOMATED NEUTROPHIL # 4.5 TH/MM3 (1.8-7.7); BASOPHIL # 0.1 TH/MM3 (0-0.2); BASOPHIL % 0.8 % (0.0-2.0); EOSINOPHIL % 0.1 % (0.0-4.0); HEMATOCRIT 32.5 % (35.0-46.0); HEMOGLOBIN 10.4 GM/DL (11.6-15.3); LYMPH % 33.7 % (9.0-44.0); LYMPHOCYTE # 2.8 TH/MM3 (1.0-4.8); MEAN CELL VOLUME 79.4 FL (80.0-100.0); MEAN CORPUSCULAR HEMOGLOBIN 25.5 PG (27.0-34.0); MEAN CORPUSCULAR HGB CONC 32.1 % (32.0-36.0); MEAN PLATELET VOLUME 8.9 FL (7.0-11.0); MONO % 10.4 % (0.0-8.0); MONOCYTE # 0.9 TH/MM3 (0-0.9); PLATELET COUNT 306 TH/MM3 (150-450); RED CELL DISTRIBUTION WIDTH 16.8 % (11.6-17.2); WHITE BLOOD COUNT 8.2 TH/MM3 (4.0-11.0)
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
[2017-05-17 14:03] LABS: ALBUMIN 3.4 GM/DL (3.4-5.0); ALT (GPT) 27 U/L (10-53); AST (GOT) 36 U/L (15-37); BICARBONATE 27.1 MEQ/L (21.0-32.0); BLOOD UREA NITROGEN 9 MG/DL (7-18); CALCIUM 8.6 MG/DL (8.5-10.1); CHLORIDE 105 MEQ/L (98-107); CREATININE 0.92 MG/DL (0.50-1.00); GLOMERULAR FILTRATION RATE 80 ML/MIN (>89); GLUCOSE,RANDOM 87 MG/DL (74-106); SODIUM (NA) 139 MEQ/L (136-145)
[2017-05-17 14:13] LABS: ALKALINE PHOSPHATASE 75 U/L (45-117); TOTAL BILIRUBIN ADULT 0.4 MG/DL (0.2-1.0); TOTAL PROTEIN 7.9 GM/DL (6.4-8.2)
[2017-05-17 14:20] LABS: ACETAMINOPHEN LESS THAN 2.0 MCG/ML (10.0-30.0)
[2017-05-17 15:54] VITALS: BP 128/63; PULSE 101; RESP 18; TEMP 97.9; O2SAT 99
[2017-05-17 20:30] VITALS: BP 119/71; PULSE 100; RESP 18; TEMP 98.4; O2SAT 100
[2017-05-18 00:18] VITALS: BP 129/68; PULSE 92; RESP 18; TEMP 98.6; O2SAT 100
[2017-05-18 06:53] VITALS: BP 130/79; PULSE 118; RESP 18; TEMP 98; O2SAT 100
[2017-05-18] MEDS ORDERED: CLOZ100T3 PO ×2 (10:49→10:50)
[2017-05-18] MEDS ORDERED: cloZAPine 100 MG TAB PO SCH (11:15)
[2017-05-18] MEDS ORDERED: DIVALPROEX SODIUM E.R. 500 MG TAB PO SCH (11:15)
--- NOTE | 2017-05-18 11:26 | PD ---
Physical Exam Time Seen by Provider: 11:25 Narrative The patient is being transferred to the [facility] for continued care and evaluation. Data Data Last Documented VS Vital Signs Date Time Temp Pulse Resp B/P (MAP) Pulse Ox O2 Delivery O2 Flow Rate FiO2 05/18/17 06:53 98.0 118 18 130/79 (96) 100 Room Air Orders Orders Complete Blood Count With Diff (05/17/17 10:25) Comprehensive Metabolic Panel (05/17/17 10:25) Thyroid Stimulating Hormone (05/17/17 10:25) Psych Screen (05/17/17 10:25) Drug Screen, Random Urine (05/17/17 10:25) Alcohol (Ethanol) (05/17/17 10:25) Salicylates (Aspirin) (05/17/17 10:25) Tylenol (Acetaminophen) (05/17/17 10:25) Diet Regular Basic (05/17/17 Dinner) Diet Regular Basic (05/18/17 Breakfast) Diet Regular Basic (05/18/17 Lunch) Clozapine (Clozaril) (05/18/17 11:15) Divalproex Er (Depakote Er) (05/18/17 11:15) Hydroxyzine Pamoate (Vistaril) (05/18/17 11:15) Labs Laboratory Tests Test 05/17/17 13:17 05/17/17 19:07 White Blood Count 8.2 TH/MM3 Red Blood Count 4.10 MIL/MM3 Hemoglobin 10.4 GM/DL Hematocrit 32.5 % Mean Corpuscular Volume 79.4 FL Mean Corpuscular Hemoglobin 25.5 PG Mean Corpuscular Hemoglobin Concent 32.1 % Red Cell Distribution Width 16.8 % Platelet Count 306 TH/MM3 Mean Platelet Volume 8.9 FL Neutrophils (%) (Auto) 55.0 % Lymphocytes (%) (Auto) 33.7 % Monocytes (%) (Auto) 10.4 % Eosinophils (%) (Auto) 0.1 % Basophils (%) (Auto) 0.8 % Neutrophils # (Auto) 4.5 TH/MM3 Lymphocytes # (Auto) 2.8 TH/MM3 Monocytes # (Auto) 0.9 TH/MM3 Eosinophils # (Auto) 0.0 TH/MM3 Basophils # (Auto) 0.1 TH/MM3 CBC Comment DIFF FINAL Differential Comment Blood Urea Nitrogen 9 MG/DL Creatinine 0.92 MG/DL Random Glucose 87 MG/DL Total Protein 7.9 GM/DL Albumin 3.4 GM/DL Calcium Level 8.6 MG/DL Alkaline Phosphatase 75 U/L Aspartate Amino Transf (AST/SGOT) 36 U/L Alanine Aminotransferase (ALT/SGPT) 27 U/L Total Bilirubin 0.4 MG/DL Sodium Level 139 MEQ/L Potassium Level 3.6 MEQ/L Chloride Level 105 MEQ/L Carbon Dioxide Level 27.1 MEQ/L Anion Gap 7 MEQ/L Estimat Glomerular Filtration Rate 80 ML/MIN Thyroid Stimulating Hormone 3rd Gen 2.450 uIU/ML Salicylates Level LESS THAN 1.7 MG/DL Acetaminophen Level LESS THAN 2.0 MCG/ML Ethyl Alcohol Level LESS THAN 3 MG/DL Urine Opiates Screen NEG Urine Barbiturates Screen NEG Urine Amphetamines Screen NEG Urine Benzodiazepines Screen NEG Urine Cocaine Screen POS Urine Cannabinoids Screen NEG MDM Supervised Visit with ILIANA: No Narrative Course The patient is being transferred to the [facility] for continued care and evaluation. Diagnosis Primary Impression: Medical clearance for psychiatric admission Disposition: 65 DISC TO PSYCH CARE FACILITY Condition: Stable Eden Ceballos [facility] May 18, 2017 11:26
== END 2017-05-18 11:51 ==
LOC: NEPD 09:35 → NEPJ 05-18 11:51
DX: F14.10 Cocaine abuse, uncomplicated (principal); F20.9 Schizophrenia, unspecified; F41.9 Anxiety disorder, unspecified; F32.9 Major depressive disorder, single episode, unspecified; I10 Essential (primary) hypertension; Z79.899 Other long term (current) drug therapy; Z88.0 Allergy status to penicillin; Z87.820 Personal history of traumatic brain injury; Z88.8 Allergy status to other drugs, medicaments and biological substances
CPT/HCPCS: 80053; 80307; 84443; 85025; 99285

== ENCOUNTER 2017-06-30 03:50 | Inpatient (IN) | payer MEDICARE, OTHER ==
[~2017-06-30 03:50] MED LIST changes: -CLOZ100T PO; +CLOZ100T3 PO
[2017-06-30 03:52] VITALS: BP 147/91; PULSE 109; RESP 17; TEMP 98.9; O2SAT 100
[2017-06-30 04:43] LABS: AUTOMATED NEUTROPHIL # 6.1 TH/MM3 (1.8-7.7); BASOPHIL % 0.5 % (0.0-2.0); HEMATOCRIT 32.2 % (35.0-46.0); HEMOGLOBIN 10.4 GM/DL (11.6-15.3); LYMPH % 27.2 % (9.0-44.0); LYMPHOCYTE # 2.5 TH/MM3 (1.0-4.8); MEAN CELL VOLUME 79.1 FL (80.0-100.0); MEAN CORPUSCULAR HEMOGLOBIN 25.4 PG (27.0-34.0); MEAN CORPUSCULAR HGB CONC 32.2 % (32.0-36.0); MEAN PLATELET VOLUME 9.4 FL (7.0-11.0); MONO % 6.3 % (0.0-8.0); MONOCYTE # 0.6 TH/MM3 (0-0.9); PLATELET COUNT 255 TH/MM3 (150-450); RED BLOOD COUNT 4.07 MIL/MM3 (4.00-5.30); WHITE BLOOD COUNT 9.2 TH/MM3 (4.0-11.0)
[2017-06-30] MEDS ORDERED: ZIPRASIDONE MESYLATE 20 MG VIAL IM ONE ×2 (04:45→10:45)
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
[2017-06-30 04:58] LABS: ALBUMIN 3.6 GM/DL (3.4-5.0); AST (GOT) 44 U/L (15-37); BICARBONATE 25.6 MEQ/L (21.0-32.0); BLOOD UREA NITROGEN 9 MG/DL (7-18); CALCIUM 8.5 MG/DL (8.5-10.1); CHLORIDE 105 MEQ/L (98-107); CREATININE 0.95 MG/DL (0.50-1.00); GLOMERULAR FILTRATION RATE 77 ML/MIN (>89); GLUCOSE,RANDOM 96 MG/DL (74-106); SODIUM (NA) 141 MEQ/L (136-145)
[2017-06-30 05:09] LABS: ALKALINE PHOSPHATASE 81 U/L (45-117); ALT (GPT) 27 U/L (10-53); TOTAL BILIRUBIN ADULT 0.4 MG/DL (0.2-1.0); TOTAL PROTEIN 7.8 GM/DL (6.4-8.2)
[2017-06-30 05:15] LABS: ACETAMINOPHEN LESS THAN 2.0 MCG/ML (10.0-30.0)
[2017-06-30] MEDS ORDERED: MAGNESIUM HYDROXIDE SUSP 30 ML CUP PO PRN (07:30)
[2017-06-30] MEDS ORDERED: ALUMINUM/MAGNESIUM/SIMETH 30 ML CUP PO PRN (07:30)
[2017-06-30] MEDS ORDERED: LORazepam 0.5 MG TAB PO PRN (07:30)
[2017-06-30] MEDS ORDERED: LORazepam 2 MG/ML VIAL IM PRN ×2 (07:30)
[2017-06-30] MEDS: DIVALPROEX SODIUM E.R. 500 MG TAB PO SCH ×2 (09:00→20:31)
[2017-06-30] MEDS: cloZAPine 100 MG TAB PO SCH ×2 (09:00→20:31)
[2017-06-30] MEDS: NICOTINE 21 MG/24 HR PATCH T-DERMAL SCH (09:00)
[2017-06-30 10:44] VITALS: BP 134/72; PULSE 84; RESP 24; TEMP 97.8; O2SAT 100
--- NOTE | 2017-06-30 12:53 | HHI.HP ---
Provisional Diagnosis Admission Date June 30, 2017 at 07:28 [place] I. Schizophrenia, cannabis and cocaine use disorder [place] II. Deferred [place] III. No significant medical history [place] IV. Multiple psychiatric hospitalizations, history of compliance [place] V. 30 Certification of Person's Competence To Provide Express and Informed Consent I have personally examined Marcelle Yee , a person being served at [facility] on, June 30, 2017 12:39. Express and informed consent means consent voluntarily given in writing, by a competent person, after sufficient explanation and disclosure of the subject matter involved to enable the person to make a knowing and willful decision without any element of force, fraud, deceit, duress, or other form of constraint or coercion. This person is 18 years of age or older, is not now known to be incompetent to consent to treatment with a guardian advocate, and does not have a health care surrogate or proxy currently making medical treatment decisions. I have found this person to be one of the following: [] Competent to provide express and informed consent, as defined above, for voluntary admission to this facility and is competent to provide express and informed consent for treatment. He/she has the consistent capacity to make well reasoned, willful, and knowing decisions concerning his or her medical or mental health treatment. The person fully and consistently understands the purpose of the admission for examination/placement and is fully capable of personally exercising all rights assured [place] [x] Incompetent to provide express and informed consent to voluntary admission, and this is incompetent to provide express and informed consent to treatment. The person must be transferred to involuntary status and a petition for a guardian advocate filed with the Circuit Court. [] Refusing to provide express and informed consent to voluntary admission but is competent to provide express and informed consent for treatment. The person must be discharged or transferred to involuntary status. Form shall be completed within 24 hours of a person's arrival at the receiving facility and filed in the clinical record of each person: 1. Admitted on a voluntary basis 2. Permitted to provide express and informed consent to his/her own treatment 3. Allowed to transfer from involuntary to voluntary status 4. Prior to permitting a person to consent to his or her own treatment after having been previously found incompetent to consent to treatment. History of Present Illness Capacity: Lacks Capacity HPI The patient is a 47-year-old -Citizen Of [place] woman, single, unemployed, domiciled her mother with history of schizophrenia, traumatic brain injury, substance use disorder including cocaine as well as marijuana, previous psychiatric hospitalizations, the last hospitalization was here at [facility] in March 2017, she was under the care of Dr. Huerta, the recommendation was review, the patient came to the hospital by herself requesting a psychiatric evaluation, but not meaningful information could be obtained for her due to the level of psychosis. Her Depakote level is suboptimal, 15, for which I assume that the patient has not been taking her medications. The patient was supposed to be on clozapine 100/250 and Depakote 500 bid. On my psychiatric evaluation the patient presents disheveled, very malodorous, extremely disorganized, with a prominent incoherent speech, word salad, tangentiality and loosening of associations. In spite of multiple redirection, the patient is unable to tell me any single information that could make sense. At the same time the patient seems to be emotionally incontinent, labile, at times laughing, at times crying , at times calm, all others quite agitated. At some point of the interview the patient escalated and became very aggressive and had to be medicated with Geodon 20 mg IM. I try to get collateral information from her mother to the telephone listed in the EMR, I called her about 3 times, but she did not sweet pickle maker the phone. Review of Systems Psychiatric: COMPLAINS OF: Confusion, Mood changes, Agitation, Delusions Substance Abuse History Drugs/Alcohol past 12 months Patient has history of using marijuana and cocaine Past Family Social History Coded Allergies: ampicillin (Unverified Allergy, Severe, Hives, 06/30/17) azithromycin (Unverified Allergy, Severe, Hives, 06/30/17) cefepime (Unverified Allergy, Severe, Hives, 06/30/17) ceftaroline fosamil (Unverified Allergy, Severe, Hives, 06/30/17) cephalexin (Unverified Allergy, Severe, Hives, 06/30/17) erythromycin base (Unverified Allergy, Severe, Hives, 06/30/17) neomycin (Unverified Allergy, Severe, Hives, 06/30/17) penicillin G (Unverified Allergy, Severe, Hives, 06/30/17) Active Scripts Divalproex ER (Divalproex ER) 500 Mg Tab, 500 MG PO BID for Mental Health for 15 Days, TAB 1 Refill Prov:Nicolas Huerta MD 04/15/17 Diphenhydramine HCl (Diphenhydramine HCl) 50 Mg Cap, 50 MG PO HS for Mental Health for 15 Days, CAP 1 Refill Prov:Nicolas Huerta MD 04/15/17 Reported Medications Clozapine (Clozapine) 100 Mg Tab, 250 MG PO HS for Schizophrenia, TAB 0 Refills 05/18/17 Clozapine (Clozapine) 100 Mg Tab, 100 MG PO DAILY for Schizophrenia, TAB 0 Refills 05/18/17 Current Medications Medications (Trade) Dose Ordered Sig/Jarod Route Start Time Stop Time Status Last Admin (Clozaril) 50 mg BID PO 06/30/17 09:00 (Benadryl) 50 mg HS PO 06/30/17 21:00 (Depakote Er) 500 mg BID PO 06/30/17 09:00 (Ativan) 1 mg Q6H PRN PO 06/30/17 07:30 (Ativan Inj) 1 mg Q6H PRN IM 06/30/17 07:30 (Tylenol) 650 mg Q4H PRN PO 06/30/17 07:30 (Milk Of Magnesia Liq) 30 ml DAILY PRN PO 06/30/17 07:30 (Mag-Al Plus Susp Liq) 30 ml Q6H PRN PO 06/30/17 07:30 (Habitrol 21 Mg Patch.24 Hr) 1 patch DAILY T-DERMAL 06/30/17 09:00 Miscellaneous Information 1 HS T-DERMAL 06/30/17 21:00 Physical Exam Vital Signs Vital Signs Date Time Temp Pulse Resp B/P (MAP) Pulse Ox O2 Delivery O2 Flow Rate FiO2 06/30/17 10:44 97.8 84 24 134/72 (92) 100 Lab Results Test 06/30/17 04:20 White Blood Count 9.2 TH/MM3 Red Blood Count 4.07 MIL/MM3 Hemoglobin 10.4 GM/DL Hematocrit 32.2 % Mean Corpuscular Volume 79.1 FL Mean Corpuscular Hemoglobin 25.4 PG Mean Corpuscular Hemoglobin Concent 32.2 % Red Cell Distribution Width 16.0 % Platelet Count 255 TH/MM3 Mean Platelet Volume 9.4 FL Neutrophils (%) (Auto) 66.0 % Lymphocytes (%) (Auto) 27.2 % Monocytes (%) (Auto) 6.3 % Eosinophils (%) (Auto) 0.0 % Basophils (%) (Auto) 0.5 % Neutrophils # (Auto) 6.1 TH/MM3 Lymphocytes # (Auto) 2.5 TH/MM3 Monocytes # (Auto) 0.6 TH/MM3 Eosinophils # (Auto) 0.0 TH/MM3 Basophils # (Auto) 0.0 TH/MM3 CBC Comment DIFF FINAL Differential Comment Blood Urea Nitrogen 9 MG/DL Creatinine 0.95 MG/DL Random Glucose 96 MG/DL Total Protein 7.8 GM/DL Albumin 3.6 GM/DL Calcium Level 8.5 MG/DL Alkaline Phosphatase 81 U/L Aspartate Amino Transf (AST/SGOT) 44 U/L Alanine Aminotransferase (ALT/SGPT) 27 U/L Total Bilirubin 0.4 MG/DL Sodium Level 141 MEQ/L Potassium Level 3.8 MEQ/L Chloride Level 105 MEQ/L Carbon Dioxide Level 25.6 MEQ/L Anion Gap 10 MEQ/L Estimat Glomerular Filtration Rate 77 ML/MIN Thyroid Stimulating Hormone 3rd Gen 4.220 uIU/ML Salicylates Level LESS THAN 1.7 MG/DL Acetaminophen Level LESS THAN 2.0 MCG/ML Valproic Acid (Depakene) Level 15 MCG/ML Ethyl Alcohol Level LESS THAN 3 MG/DL Mental Status Examination Appearance: Disheveled, Malodorous Consciousness: Alert Orientation: Person, Place Speech: Rapid, Incoherent Language: Adequate Fund of Knowledge: Inadequate Attention and Concentration: Easily Distracted Memory: Impaired Mood: Angry Affect: Labile Thought Process & Associations: Loose associations, Word salad, Tangential Thought Content: Bizarre thinking, Delusional Hallucination Type: None Delusion Type: Paranoid Suicidal Ideation: No Suicidal Plan: No Suicidal Intention: No Homicidal Ideation: No Homicidal Plan: No Homicidal Intention: No Insight: Poor Judgment: Poor Assessment & Plan Problem List: (1) Schizophrenia ICD Codes: F20.9 - Schizophrenia, unspecified Assessment & Plan: On psychiatric evaluation today I find the patient is very disorganized, with poor contact with reality, prominent word salad, loosening of associations, tangential thought process, emotionally incontinent, labile, unable to provide any meaningful information for the psychiatric assessment. He is a patient with psychiatric history of schizophrenia, TBI with some secondary cognitive limitations, multiple psychiatric hospitalizations, cannabis and cocaine use disorder, she was hospitalized here in [place] in 2017 with a similar presentation on today. Given her level of psychosis the patient is unable to take care of herself she needs psychiatric admission for stabilization. I will restart Depakote 500 mg twice daily. Since her Depakote level was suboptimal I would assume that she was not taking her clozapine either. We will start the clozapine 50 mg twice daily. Collateral information from her mother is still pending. As patient became quite agitated and even aggressive during the evaluation Geodon 20 mg IM will be given. Transfer patient to 2700 unit. Assessment & Plan Estimated LOS: days Mahad Knott MD June 30, 2017 12:53
[2017-06-30 14:30] VITALS: BP 138/84; PULSE 102; RESP 18; TEMP 98.2; O2SAT 100
[2017-06-30] MEDS: diphenhydrAMINE HCL 50 MG CAP PO SCH (20:31)
[2017-06-30] MEDS: REMOVE OLD NICODERM (NICOTINE) PATCH T-DERMAL SCH (20:35)
[2017-07-01 06:45] VITALS: BP 144/80; PULSE 99; RESP 18; TEMP 97.8; O2SAT 99
[2017-07-01 07:13] LABS: BICARBONATE 26.2 MEQ/L (21.0-32.0); BLOOD UREA NITROGEN 7 MG/DL (7-18); CALCIUM 8.9 MG/DL (8.5-10.1); CHLORIDE 104 MEQ/L (98-107); CREATININE 0.78 MG/DL (0.50-1.00); GLOMERULAR FILTRATION RATE 96 ML/MIN (>89); GLUCOSE,RANDOM 99 MG/DL (74-106); SODIUM (NA) 141 MEQ/L (136-145)
[2017-07-01 07:15] LABS: CHOLESTEROL 171 MG/DL (120-200); TRIGLYCERIDES 81 MG/DL (42-150)
[2017-07-01 07:17] LABS: CHOLESTEROL/ HDL RATIO 2.78 RATIO; HDL CHOLESTEROL 61.4 MG/DL (40.0-60.0); LDL CHOLESTEROL 93 MG/DL (0-99)
[2017-07-01] MEDS: cloZAPine 100 MG TAB PO SCH (08:32)
[2017-07-01] MEDS: NICOTINE 21 MG/24 HR PATCH T-DERMAL SCH (08:33)
[2017-07-01] MEDS: DIVALPROEX SODIUM E.R. 500 MG TAB PO SCH (08:33)
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
[2017-07-01 16:22] LABS: HEMOGLOBIN A1C 5.4 % (4.3-6.0)
[2017-07-01] MEDS: diphenhydrAMINE HCL 50 MG CAP PO SCH (21:00)
[2017-07-01] MEDS: REMOVE OLD NICODERM (NICOTINE) PATCH T-DERMAL SCH (21:00)
[2017-07-02 05:50] VITALS: BP 156/88; PULSE 99; RESP 18; TEMP 98.5; O2SAT 100
[2017-07-02] MEDS: NICOTINE 21 MG/24 HR PATCH T-DERMAL SCH (09:00)
--- NOTE | 2017-07-02 14:42 | HHI.PYPN ---
Subjective Remarks Patient seen for follow, chart reviewed. Discussion nursing staff reported the patient continues to be noted to be disorganized, requiring redirection but no aggressive behaviors. Patient was found sitting in the room noted B, cooperative. Patient noted to be disorganized during interview to be intrusive with jingle writer. Patient states that she slept "good" and noted to be significant amount anabaptism preoccupation with flight of ideas and mostly making nonsensical statements. Patient also noted to be talking to self after interview. [place] Clerk again reached out to patient's mother for collateral formation as well as consent for medication which mother was able to be reached and stated that he she was not aware that the patient was in the hospital. She mentions that she allow the patient to go to a friend's home a couple of days ago and patient had "wandered off" from that friend's house and was not aware where the patient had gone. She mentions that the patient has not had her medication since having left the home on Friday to the friend's home. She also states that when patient has been compliant with medications she was doing well. Review of Systems Except as stated in HPI: all other systems reviewed are Neg Mental Status Examination Appearance: Disheveled, Malodorous Consciousness: Alert Orientation: Person, Place Speech: Incoherent Language: Adequate Fund of Knowledge: Inadequate Attention and Concentration: Easily Distracted Memory: Impaired Mood: Anxious Affect: Labile, Anxious Thought Process & Associations: Loose associations, Disorganized, Word salad, Tangential Thought Content: Bizarre thinking, Delusional Hallucination Type: None Delusion Type: Paranoid Suicidal Ideation: No Suicidal Plan: No Suicidal Intention: No Homicidal Ideation: No Homicidal Plan: No Homicidal Intention: No Insight: Poor Judgment: Poor Results Vitals/IOs Vital Signs Date Time Temp Pulse Resp B/P (MAP) Pulse Ox O2 Delivery O2 Flow Rate FiO2 07/02/17 05:50 98.5 99 18 156/88 (110) 100 Assessment & Plan Problem List: (1) Schizophrenia ICD Codes: F20.9 - Schizophrenia, unspecified Assessment & Plan Patient this time continues we disorganized require redirection appearing to be worsening becoming more psychotic. Patient was able to be redirected. Consent was obtained via telephone with patient's mother which B/R/A were reviewed and agreed to restart patient on medications. Patient will continue clonazepam 50 mg p.o. twice daily with upper titration back to her prior dose which was effective previously. We will resume Depakote 500 mg p.o. twice daily for mood stabilization. We will continue monitor mood and behavior. Discharge planning in progress. Justification for Cont. Inpt. At risk of further decompensation a lower level care. Emre Sanders MD July 02, 2017 14:42
[2017-07-02] MEDS: DIVALPROEX SODIUM E.R. 500 MG TAB PO SCH ×2 (16:14→20:54)
--- NOTE | 2017-07-02 16:14 | PD.TTN ---
Patient Problems 1. Discharge planning 2. Medication compliance 3. Knowledge deficit 4. Lack of coping skills Progress Toward Goals Provider Present: Dr. Delfina Sanders Provider Input: Dr. Sanders has his treatment team meeting to discuss treatment plan, discharge, and medication. Patient is very intrusive, poor boundaries, internally stimulated Nurse(s) Input: Patient is argumentative, childlike, just received consent for medication Psychiatric Counselors Present: [facility]uchi Torres [facility] Input: Patient presents intrusive, internally stimulated, poor boundaries, no insight, affect blunted. Doctor was just able to start medication on patient due to not having permission to treat patient. Group Spec/RT/OT/RAHMAN Present: IMELDA Leong Group Spec/RT/OT/RAHMAN Input: Patient does not attend groups Ruchi Torres [facility] [place] July 02, 2017 16:14
[2017-07-02] MEDS: LORazepam 1 MG TAB PO PRN (16:17)
[2017-07-02] MEDS: cloZAPine 100 MG TAB PO SCH ×2 (16:17→20:54)
[2017-07-02 16:54] VITALS: BP 116/74; PULSE 104; RESP 18; TEMP 98.3; O2SAT 100
[2017-07-02] MEDS: diphenhydrAMINE HCL 50 MG CAP PO SCH (20:53)
[2017-07-02] MEDS: REMOVE OLD NICODERM (NICOTINE) PATCH T-DERMAL SCH (21:00)
[2017-07-03 06:11] VITALS: BP 141/80; PULSE 99; RESP 18; TEMP 97; O2SAT 100
--- NOTE | 2017-07-03 07:14 | HHI.PYPN ---
Subjective Remarks Patient seen for follow-up, chart reviewed. Discussion with nursing staff reported patient continues with disorganization, intrusiveness, but no behavioral disturbances. Patient was presented to mental health court and was retained for involuntary hospitalization and patient's mother appointed as guardian advocate. Patient continues with disorganized thought process, intrusiveness and requires much redirection but not aggressive behavior. Review of Systems Except as stated in HPI: all other systems reviewed are Neg Mental Status Examination Appearance: Disheveled, Malodorous Consciousness: Alert Orientation: Person, Place Speech: Incoherent Language: Adequate Fund of Knowledge: Inadequate Attention and Concentration: Easily Distracted Memory: Impaired Mood: Anxious Affect: Labile, Anxious Thought Process & Associations: Loose associations, Disorganized, Word salad, Tangential Thought Content: Bizarre thinking, Delusional Hallucination Type: None Delusion Type: Paranoid Suicidal Ideation: No Suicidal Plan: No Suicidal Intention: No Homicidal Ideation: No Homicidal Plan: No Homicidal Intention: No Insight: Poor Judgment: Poor Results Vitals/IOs Vital Signs Date Time Temp Pulse Resp B/P (MAP) Pulse Ox O2 Delivery O2 Flow Rate FiO2 07/03/17 06:11 97.0 99 18 141/80 (100) 100 Assessment & Plan Problem List: (1) Schizophrenia ICD Codes: F20.9 - Schizophrenia, unspecified Assessment & Plan Patient this time continues to be disorganized, intrusive, at times making incoherent statements continues require stabilization. We will continue to increase clozapine to 50 mg a.m./100 mg at bedtime with upper titration to target dose of 100 mg a.m./250 mg at bedtime as this was patient's prior regimen which patient had achieved stability. We will continue Depakote 500 mg p.o. twice daily with a subsequent valproic acid level at the appropriate time. Urine toxicology screen was ordered as it was not done upon arrival and ordered due to patient's history of previous cocaine use. We will continue monitor mood and behavior. Patient presented to mental health court and was retained for involuntary hospitalization for stabilization. Discharge planning in progress. Justification for Cont. Inpt. At risk of further decompensation at lower level of care. Discharge Planning Patient return back to her residence when psychiatrically stable. Emre Sanders MD July 03, 2017 07:14
[2017-07-03] MEDS ORDERED: PILL SPLITTER OTHER PRN (07:15)
[2017-07-03] MEDS: cloZAPine 100 MG TAB PO SCH ×2 (08:47→09:00)
[2017-07-03] MEDS: NICOTINE 21 MG/24 HR PATCH T-DERMAL SCH (08:47)
[2017-07-03] MEDS: DIVALPROEX SODIUM E.R. 500 MG TAB PO SCH ×3 (08:47→20:14)
[2017-07-03 17:11] VITALS: BP 120/75; PULSE 91; RESP 19; TEMP 97.8; O2SAT 100
[2017-07-03] MEDS: diphenhydrAMINE HCL 50 MG CAP PO SCH (20:14)
[2017-07-03] MEDS: REMOVE OLD NICODERM (NICOTINE) PATCH T-DERMAL SCH (20:17)
[2017-07-03] MEDS ORDERED: cloZAPine 100 MG TAB PO SCH (21:00)
[2017-07-04 01:31] VITALS: BP 121/67; PULSE 67; RESP 16; TEMP 98.3; O2SAT 98
[2017-07-04 05:55] VITALS: BP 116/66; PULSE 97; RESP 16; TEMP 97.6; O2SAT 100
[2017-07-04] MEDS: NICOTINE 21 MG/24 HR PATCH T-DERMAL SCH (09:00)
[2017-07-04] MEDS: cloZAPine 100 MG TAB PO SCH ×2 (09:45→20:48)
[2017-07-04] MEDS: DIVALPROEX SODIUM E.R. 500 MG TAB PO SCH ×2 (09:48→20:49)
--- NOTE | 2017-07-04 15:23 | HHI.PYPN ---
Subjective Remarks Patient seen for follow, chart reviewed. Discussion wishes to reported the patient this compliant with treatment and requesting to go to outside activity today. Patient was found sitting in the room noted B, cooperative, continues to be noted to be disorganized during interview although is able to answer more appropriately today continues to have loosening associations and at times making nonsensical statements. It appears patient has been less intrusive today , requesting to be allowed to go to group outside. He denies any perceptional services at this time but is noted to be internally preoccupied and talking to self at times. Review of Systems Except as stated in HPI: all other systems reviewed are Neg Mental Status Examination Appearance: Disheveled, Malodorous Consciousness: Alert Orientation: Person, Place Speech: Incoherent Language: Adequate Fund of Knowledge: Inadequate Attention and Concentration: Easily Distracted Memory: Impaired Mood: Appropriate Affect: Anxious Thought Process & Associations: Loose associations, Disorganized, Word salad, Tangential Thought Content: Bizarre thinking, Delusional Hallucination Type: None Delusion Type: Paranoid Suicidal Ideation: No Suicidal Plan: No Suicidal Intention: No Homicidal Ideation: No Homicidal Plan: No Homicidal Intention: No Insight: Poor Judgment: Poor Results Vitals/IOs Vital Signs Date Time Temp Pulse Resp B/P (MAP) Pulse Ox O2 Delivery O2 Flow Rate FiO2 07/04/17 05:55 97.6 97 16 116/66 (83) 100 Assessment & Plan Problem List: (1) Schizophrenia ICD Codes: F20.9 - Schizophrenia, unspecified Assessment & Plan Patient continues to be disorganized, internally preoccupied, less intrusive today, but no aggressive behavior. We will continue to titrate clozapine to 50 mg a.m. 150 mg at bedtime with upper titration. We will continue Depakote 500 mg p.o. twice daily. I will request Depakote level on 07/06/17 in the a.m. prior to morning dose. We will continue monitor mood and behavior. Discharge planning in progress. Justification for Cont. Inpt. At risk of further decompensation at lower level of care. Discharge Planning Patient return back to her mother's residence was psychiatrically stable. Emre Sanders MD July 04, 2017 15:23
[2017-07-04 17:00] VITALS: BP 124/85; PULSE 107; RESP 18; TEMP 97.9; O2SAT 100
[2017-07-04] MEDS: diphenhydrAMINE HCL 50 MG CAP PO SCH (20:47)
[2017-07-04] MEDS: REMOVE OLD NICODERM (NICOTINE) PATCH T-DERMAL SCH (20:49)
[2017-07-04] MEDS ORDERED: cloZAPine 100 MG TAB PO SCH (21:00)
[2017-07-05 06:21] VITALS: BP 126/93; PULSE 98; RESP 18; TEMP 98.3; O2SAT 97
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
[2017-07-05] MEDS: NICOTINE 21 MG/24 HR PATCH T-DERMAL SCH (09:00)
--- NOTE | 2017-07-05 09:36 | HHI.PYPN ---
Subjective Remarks Chart reviewed and discussed with nurse. Met with nurse in hallway with MARICARMEN Lynch. Continues to be disorganized and not focused. Having difficulty answering basic questions. Loose associations and incomplete sentences. She has a significant runny nose. Will place a medical consult to rule out a sinus infection. Per nurse report eating and sleeping well. Last Valporic Acid on was 15, labs today with Valporic Acid level ordered. Mental Status Examination Appearance: Disheveled, Malodorous Consciousness: Alert Orientation: Person, Place Speech: Incoherent Language: Adequate Fund of Knowledge: Inadequate Attention and Concentration: Easily Distracted Memory: Impaired Mood: Appropriate Affect: Anxious Thought Process & Associations: Loose associations, Disorganized, Word salad, Tangential Thought Content: Bizarre thinking, Delusional Hallucination Type: None Delusion Type: Paranoid Suicidal Ideation: No Suicidal Plan: No Suicidal Intention: No Homicidal Ideation: No Homicidal Plan: No Homicidal Intention: No Insight: Poor Judgment: Poor Results Vitals/IOs Vital Signs Date Time Temp Pulse Resp B/P (MAP) Pulse Ox O2 Delivery O2 Flow Rate FiO2 07/05/17 06:21 98.3 98 18 126/93 (104) 97 Assessment & Plan Problem List: (1) Schizophrenia ICD Codes: F20.9 - Schizophrenia, unspecified Assessment & Plan Estimated LOS: days Justification for Cont. Inpt. Patient continues to be disorganized with loose associations. Easily redirected. Runny nose and does acknowledge that she does not feel well. Will place a medical consult to rule out sinus infection. Eating and sleeping well. Moving patient to a lower level of care may result in her decompensation. Keiry Kerns July 05, 2017 09:36
[2017-07-05] MEDS: cloZAPine 100 MG TAB PO SCH ×2 (10:34→21:12)
[2017-07-05] MEDS: DIVALPROEX SODIUM E.R. 500 MG TAB PO SCH ×2 (10:35→21:19)
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
[2017-07-05] MEDS ORDERED: cloNIDine HCL 0.1 MG TAB PO PRN (13:30)
[2017-07-05] MEDS: ACETAMINOPHEN 325 MG TAB PO PRN (14:33)
[2017-07-05] MEDS: diphenhydrAMINE HCL 50 MG CAP PO SCH (21:11)
[2017-07-05] MEDS: REMOVE OLD NICODERM (NICOTINE) PATCH T-DERMAL SCH (21:12)
[2017-07-06] MEDS: LORazepam 1 MG TAB PO PRN ×2 (00:52→20:28)
[2017-07-06] MEDS: NICOTINE 21 MG/24 HR PATCH T-DERMAL SCH (09:00)
[2017-07-06] MEDS: cloZAPine 100 MG TAB PO SCH ×2 (09:19→20:28)
[2017-07-06] MEDS: DIVALPROEX SODIUM E.R. 500 MG TAB PO SCH ×2 (09:19→20:28)
--- NOTE | 2017-07-06 14:58 | HHI.PYPN ---
Subjective Remarks Patient seen and examined with nurse in weekend coverage. Chart reviewed. Case discussed with nursing staff. On my examination today, the patient is quite disorganized and intrusive. She is difficult to redirect and interrupt my interviews with several other patients. No evident side effects from medications. No physical complaints. Review of Systems ROS Limitations: Psychotic, Poor Historian Except as stated in HPI: all other systems reviewed are Neg Mental Status Examination Appearance: Disheveled Consciousness: Alert Orientation: Person, Place Motor Activity: Other (No motor abnormalities noted) Speech: Incoherent Language: Other (Rambling) Fund of Knowledge: Inadequate Attention and Concentration: Easily Distracted Memory: Impaired Mood: Appropriate Affect: Euthymic (Childlike) Thought Process & Associations: Loose associations, Disorganized Thought Content: Bizarre thinking, Delusional Hallucination Type: None Delusion Type: Bizarre Suicidal Ideation: No Homicidal Ideation: No Insight: Poor Judgment: Poor Results Labs Test 07/06/17 08:30 Valproic Acid (Depakene) Level 74 MCG/ML Labs reviewed. Depakote level therapeutic at 74. Vitals/IOs Vital Signs Date Time Temp Pulse Resp B/P (MAP) Pulse Ox O2 Delivery O2 Flow Rate FiO2 07/05/17 15:33 14 07/05/17 06:21 98.3 98 126/93 (104) 97 Assessment & Plan Problem List: (1) Schizophrenia ICD Codes: F20.9 - Schizophrenia, unspecified Assessment & Plan Continue clozapine titration as ordered. I will order a CBC for the morning to monitor ANC while on clozapine therapy. Hospitalist input noted and appreciated. Continue other medications and care as ordered. Justification for Cont. Inpt. Med changes. Risk for decompensation in less restrictive environment. Discharge Planning As ordered by primary psychiatrist Nicolas Huerta MD July 06, 2017 14:58
[2017-07-06 15:14] VITALS: BP 128/87; PULSE 93; RESP 18; TEMP 97.4; O2SAT 98
[2017-07-06] MEDS: REMOVE OLD NICODERM (NICOTINE) PATCH T-DERMAL SCH (20:28)
[2017-07-06] MEDS: diphenhydrAMINE HCL 50 MG CAP PO SCH (20:28)
[2017-07-07 06:14] VITALS: BP 133/100; PULSE 104; RESP 18; TEMP 97.5; O2SAT 98
[2017-07-07] MEDS: cloZAPine 100 MG TAB PO SCH ×2 (08:12→21:14)
[2017-07-07] MEDS: NICOTINE 21 MG/24 HR PATCH T-DERMAL SCH (08:13)
[2017-07-07] MEDS: DIVALPROEX SODIUM E.R. 500 MG TAB PO SCH ×2 (08:13→21:14)
[2017-07-07 09:52] LABS: HEMATOCRIT 32.1 % (35.0-46.0); HEMOGLOBIN 10.2 GM/DL (11.6-15.3); MEAN CELL VOLUME 79.8 FL (80.0-100.0); MEAN CORPUSCULAR HEMOGLOBIN 25.3 PG (27.0-34.0); MEAN CORPUSCULAR HGB CONC 31.7 % (32.0-36.0); MEAN PLATELET VOLUME 8.5 FL (7.0-11.0); PLATELET COUNT 331 TH/MM3 (150-450); RED BLOOD COUNT 4.02 MIL/MM3 (4.00-5.30); RED CELL DISTRIBUTION WIDTH 16.3 % (11.6-17.2); WHITE BLOOD COUNT 6.9 TH/MM3 (4.0-11.0)
[2017-07-07 10:50] LABS: LYMPHOCYTES 37 % (9-44); MONOCYTES 7 % (0-8); NEUTROPHIL # MANUAL DIFF 3.9 TH/MM3 (1.8-7.7); POLYS (SEG NEUTROPHILS) 56 % (16-70)
[2017-07-07 10:51] LABS: OVALOCYTES 1+ (NORMAL)
--- NOTE | 2017-07-07 11:29 | HHI.PYPN ---
Subjective Remarks Patient seen for follow, chart reviewed. Discussion nursing staff reported the patient continues to be somewhat tangential, disorganized at times and intrusive but no aggressive behavior. Patient was found in day room noted B, cooperative. Patient states that her weekend was great, reports sleeping well, eating and drinking well no difficulty with bowel movement. Patient states that she has not spoken with her mother since admission will like to speak with her. Patient noted to be somewhat tangential with occasional disorganized statements but appears to be lessening and more redirectable during conversation. Review of Systems Except as stated in HPI: all other systems reviewed are Neg Mental Status Examination Appearance: Appropriate Consciousness: Alert Orientation: Person, Place Motor Activity: Other (No motor abnormalities noted) Speech: Incoherent Language: Other (Rambling) Fund of Knowledge: Inadequate Attention and Concentration: Easily Distracted Memory: Impaired Mood: Appropriate Affect: Euthymic (Childlike) Thought Process & Associations: Loose associations, Disorganized Thought Content: Bizarre thinking, Delusional Hallucination Type: None Delusion Type: Bizarre Suicidal Ideation: No Homicidal Ideation: No Insight: Poor Judgment: Poor Results Labs Labs reviewed Test 07/07/17 09:25 White Blood Count 6.9 TH/MM3 Red Blood Count 4.02 MIL/MM3 Hemoglobin 10.2 GM/DL Hematocrit 32.1 % Mean Corpuscular Volume 79.8 FL Mean Corpuscular Hemoglobin 25.3 PG Mean Corpuscular Hemoglobin Concent 31.7 % Red Cell Distribution Width 16.3 % Platelet Count 331 TH/MM3 Mean Platelet Volume 8.5 FL CBC Comment AUTO DIFF Differential Total Cells Counted 100 Neutrophils % (Manual) 56 % Lymphocytes % 37 % Monocytes % 7 % Neutrophils # (Manual) 3.9 TH/MM3 Differential Comment FINAL DIFF MANUAL Platelet Estimate NORMAL Platelet Morphology Comment NORMAL Ovalocytes 1+ Vitals/IOs Vital Signs Date Time Temp Pulse Resp B/P (MAP) Pulse Ox O2 Delivery O2 Flow Rate FiO2 07/07/17 06:14 97.5 104 18 133/100 (111) 98 Assessment & Plan Problem List: (1) Schizophrenia ICD Codes: F20.9 - Schizophrenia, unspecified Assessment & Plan Patient this time noted to have less disorganization less tangential, less intrusiveness, appears to be improving. We will continue to titrate clozapine to 100 mg p.o. daily/250 mg at bedtime for psychosis. We will continue Depakote at 500 mg p.o. twice daily, recent VPA level was within therapeutic limits (74). We will continue to monitor mood and behavior. We will try to have mother come and visit patient to assess with a patient is close to baseline. Continue current treatment. Discharge planning in progress. Justification for Cont. Inpt. At risk of further decompensation a lower level of care. Discharge Planning Patient return back to her residence when psychiatrically stable. Emre Sanders MD July 07, 2017 11:29
[2017-07-07 18:07] VITALS: BP 121/76; PULSE 97; RESP 18; TEMP 98.6; O2SAT 99
[2017-07-07] MEDS: REMOVE OLD NICODERM (NICOTINE) PATCH T-DERMAL SCH (21:00)
[2017-07-07] MEDS: diphenhydrAMINE HCL 50 MG CAP PO SCH (21:14)
[2017-07-08 06:55] VITALS: BP 141/89; PULSE 104; RESP 18
[2017-07-08] MEDS: cloZAPine 100 MG TAB PO SCH ×2 (08:37→20:26)
[2017-07-08] MEDS: DIVALPROEX SODIUM E.R. 500 MG TAB PO SCH ×2 (08:38→20:27)
[2017-07-08] MEDS: NICOTINE 21 MG/24 HR PATCH T-DERMAL SCH (08:39)
[2017-07-08 17:49] VITALS: BP 121/76; PULSE 101; RESP 18; TEMP 97.7; O2SAT 98
--- NOTE | 2017-07-08 18:37 | HHI.PYPN ---
Subjective Remarks Patient seen for follow-up, chart reviewed. Discussion nursing staff reported the patient with no behavioral disturbances and compliant with treatment. Patient was found ambulating on the unit noted B, cooperative. Patient states that she is feeling okay noted to be more organized although continues to have occasional nonsensical statements but has been participating in group, has a compliant with medications and noted to be a lot less intrusive. Patient continues to deny any perceptional services. Review of Systems Except as stated in HPI: all other systems reviewed are Neg Mental Status Examination Appearance: Appropriate Consciousness: Alert Orientation: Person, Place Motor Activity: Other (No motor abnormalities noted) Speech: Incoherent Language: Other (Rambling) Fund of Knowledge: Inadequate Attention and Concentration: Easily Distracted Memory: Impaired Mood: Appropriate Affect: Euthymic (Childlike) Thought Process & Associations: Loose associations, Other ([place]) Thought Content: Bizarre thinking Hallucination Type: None Delusion Type: None Suicidal Ideation: No Suicidal Plan: No Suicidal Intention: No Homicidal Ideation: No Homicidal Plan: No Homicidal Intention: No Insight: Poor Judgment: Poor Results Vitals/IOs Vital Signs Date Time Temp Pulse Resp B/P (MAP) Pulse Ox O2 Delivery O2 Flow Rate FiO2 07/08/17 17:49 97.7 101 18 121/76 (91) 98 Assessment & Plan Problem List: (1) Schizophrenia ICD Codes: F20.9 - Schizophrenia, unspecified Assessment & Plan Patient noted to have improvement and organized thought process although there will be some degree of disorganization and neurocognitive deficits secondary to previous TBI. Patient is tolerating medication well treatment he attempted to contact patient's mother for a visit to assess patient's baseline especially likely close to discharge now. We will continue current treatment. Will continue monitor mood and behavior. Discharge planning in progress. Justification for Cont. Inpt. At risk of further decompensation at lower level care. Discharge Planning Patient return back to her residence when psychiatrically stable. Emre Sanders MD July 08, 2017 18:37
[2017-07-08] MEDS: diphenhydrAMINE HCL 50 MG CAP PO SCH (20:26)
[2017-07-08] MEDS: REMOVE OLD NICODERM (NICOTINE) PATCH T-DERMAL SCH (21:00)
[2017-07-09 06:02] VITALS: BP 129/64; PULSE 116; RESP 16; TEMP 100.1
[2017-07-09] MEDS: DIVALPROEX SODIUM E.R. 500 MG TAB PO SCH ×2 (08:41→20:42)
[2017-07-09] MEDS: cloZAPine 100 MG TAB PO SCH ×2 (08:41→20:43)
[2017-07-09] MEDS: NICOTINE 21 MG/24 HR PATCH T-DERMAL SCH (08:41)
--- NOTE | 2017-07-09 11:40 | HHI.PYPN ---
Subjective Remarks Patient seen for follow, chart reviewed. Discussion nursing staff reported the patient has a compliant medications and attending groups. Patient was found lying hospital bed noted B, cooperative. Patient was noted to have more interaction during interview, although continues to have occasional nonsensical statements but able to be redirected back to topic. Patient denies any perceptional services. Patient has had no behavioral disturbances since admission noted be more appropriate with interactions among staff and other peers. Review of Systems Except as stated in HPI: all other systems reviewed are Neg Mental Status Examination Appearance: Appropriate Consciousness: Alert Orientation: Person, Place Motor Activity: Other (No motor abnormalities noted) Speech: Incoherent Language: Other (Rambling) Fund of Knowledge: Inadequate Attention and Concentration: Easily Distracted Memory: Impaired Mood: Appropriate Affect: Euthymic (Childlike) Thought Process & Associations: Loose associations, Other ([place]) Thought Content: Bizarre thinking Hallucination Type: None Delusion Type: None Suicidal Ideation: No Suicidal Plan: No Suicidal Intention: No Homicidal Ideation: No Homicidal Plan: No Homicidal Intention: No Insight: Poor Judgment: Poor Results Vitals/IOs Vital Signs Date Time Temp Pulse Resp B/P (MAP) Pulse Ox O2 Delivery O2 Flow Rate FiO2 07/09/17 06:02 100.1 116 16 129/64 (85) 07/08/17 17:49 98 Assessment & Plan Problem List: (1) Schizophrenia ICD Codes: F20.9 - Schizophrenia, unspecified Assessment & Plan Patient this time with no behavioral disturbances tolerating medications well, appropriate interactions among staff and peers. Patient with occasional nonsensical statements likely secondary to neurocognitive deficits from previous TBI. Patient denies any perceptional services or delusions. We will attempt to contact patient's mother as patient likely for discharge to continue with outpatient services. Discharge planning in progress. Justification for Cont. Inpt. At risk of further decompensation a lower level care. Discharge Planning Patient return back to her mother's residence. Emre Sanders MD July 09, 2017 11:40
[2017-07-09 15:47] VITALS: BP 114/56; PULSE 110; RESP 18; TEMP 98.5; O2SAT 99
[2017-07-09] MEDS: diphenhydrAMINE HCL 50 MG CAP PO SCH (20:43)
[2017-07-09] MEDS: REMOVE OLD NICODERM (NICOTINE) PATCH T-DERMAL SCH (20:48)
[2017-07-10 06:16] VITALS: BP 137/64; PULSE 107; RESP 17; TEMP 97.9; O2SAT 97
[2017-07-10] MEDS: cloZAPine 100 MG TAB PO SCH (09:07)
[2017-07-10] MEDS: DIVALPROEX SODIUM E.R. 500 MG TAB PO SCH (09:07)
[2017-07-10] MEDS: ACETAMINOPHEN 325 MG TAB PO PRN (09:08)
[2017-07-10] MEDS: NICOTINE 21 MG/24 HR PATCH T-DERMAL SCH (09:12)
[2017-07-10] MEDS ORDERED: CLOZ100T3 PO ×2 (14:08)
[2017-07-10] MEDS ORDERED: DIVA500T3 PO (14:08)
[2017-07-10] MEDS ORDERED: DIPH50CA PO (14:08)
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
== END 2017-07-10 14:55 | disposition home or self-care (01) | DRG 885 ==
LOC: NEPJ 03:50 → NEDA 07:28 → H270 14:20
PROVIDERS: ADMIT Student in an Organized Health Care Education/Training Program; ATTEND Student in an Organized Health Care Education/Training Program
DX: F20.9 Schizophrenia, unspecified (principal); Z91.14 Patient's other noncompliance with medication regimen; I10 Essential (primary) hypertension; H54.61 Unqualified visual loss, right eye, normal vision left eye; Z87.820 Personal history of traumatic brain injury; Z72.0 Tobacco use; F32.9 Major depressive disorder, single episode, unspecified; F41.9 Anxiety disorder, unspecified; R05 Cough
CPT/HCPCS: 80048; 80053; 80061; 80164; 80307; 83036; 84443; 85007; 85025; 85027; 96372; J2060; J3486; Q0163

== ENCOUNTER 2018-04-04 17:25 | Inpatient (IN) ==
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
[2018-04-04 19:37] LABS: Baso % (Auto) 0.5 % (0.0-2.0); Hemoglobin 10.7 gm/dL (11.6-15.3); Lymph # (Auto) 3.3 th/mm3 (1.0-4.8); Mean Corpuscular HGB Conc 31.6 % (32.0-36.0); Mean Corpuscular Hemoglobin 26.1 pg (27.0-34.0); Mean Corpuscular Volume 82.7 fL (80.0-100.0); Mean Platelet Volume 8.7 fL (7.0-11.0); Mono # (Auto) 0.7 th/mm3 (0.0-0.9); Mono % (Auto) 10.5 % (0.0-8.0); Neut # (Auto) 2.8 th/mm3 (1.8-7.7); Platelet Count 281 th/mm3 (150-450); Red Blood Count 4.11 mil/mm3 (4.00-5.30); Red Cell Distribution Width 15.2 % (11.6-17.2); White Blood Count 6.9 th/mm3 (4.0-11.0)
[2018-04-04 19:48] LABS: Amphetamine Screen,Urine Neg (Neg); Barbiturate Screen,Urine Neg (Neg); Cannabinoid Screen,Urine Neg (Neg); Cocaine Screen,Urine Neg (Neg)
[2018-04-04 20:00] LABS: Opiate Screen,Urine Neg (Neg)
[2018-04-04 20:02] LABS: Albumin 3.4 g/dL (3.4-5.0); Anion Gap 10 meq/L (5-15); Aspartate Aminotransferase 8 U/L (15-37); Blood Urea Nitrogen 11 mg/dL (7-18); Calcium 9.1 mg/dL (8.5-10.1); Carbon Dioxide 25.3 meq/L (21.0-32.0); Chloride 103 meq/L (98-107); Glomerular Filtration Rate Greater Than 89 mL/min (>89); Glucose,Random 94 mg/dL (74-106); Potassium 3.4 meq/L (3.5-5.1); Sodium 138 meq/L (136-145)
[2018-04-04 20:10] LABS: Alanine Aminotransferase 10 U/L (10-53); Alkaline Phosphatase 67 U/L (45-117); Total Protein 8.3 g/dL (6.4-8.2)
[2018-04-04] MEDS ORDERED: LORazepam 1 MG Tablet PO ONE (22:17)
[2018-04-05] MEDS ORDERED: Acetaminophen 325 MG Tablet PO PRN (04:40)
[2018-04-05] MEDS ORDERED: Aluminum/Magnesium/Simethacone Susp 30 ML UDC PO PRN (04:41)
[2018-04-05] MEDS ORDERED: LORazepam 1 MG Tablet PO PRN (04:41)
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
[2018-04-05] MEDS: Divalproex 500 MG ER Tablet PO SCH (20:56)
[2018-04-06 11:05] LABS: Anion Gap 7 meq/L (5-15); Blood Urea Nitrogen 9 mg/dL (7-18); Calcium 9.2 mg/dL (8.5-10.1); Carbon Dioxide 26.6 meq/L (21.0-32.0); Chloride 107 meq/L (98-107); Cholesterol 192 mg/dL (120-200); Glomerular Filtration Rate Greater Than 89 mL/min (>89); Glucose,Random 103 mg/dL (74-106); Potassium 3.8 meq/L (3.5-5.1); Sodium 141 meq/L (136-145); Triglycerides 146 mg/dL (42-150)
[2018-04-06 11:07] LABS: Chol/HDL Ratio 3.77 Ratio; HDL Cholesterol 50.8 mg/dL (40.0-60.0); LDL Cholesterol,Calculated 112 mg/dL (0-99)
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
[2018-04-06 15:39] LABS: Hemoglobin A1c 5.4 % (4.3-6.0)
[2018-04-06] MEDS: Divalproex 500 MG ER Tablet PO SCH (22:30)
[2018-04-07 05:50] VITALS: BP 138/71; PULSE 81; RESP 16; TEMP 98.1; O2SAT 98
--- NOTE | 2018-04-07 09:02 | P.DSPSY ---
Psychiatry Discharge Summary Inpatient Psychiatric care?: Yes Advance Directives: No Mental Health Advance Directive: No Health Care Proxy: No - Admission Admission Date: April 04, 2018 22:51 Diagnosis specificity: Schizophrenia Brief History: Pt is a 47 YOAAF with a hx of schizophrenia who was [place] [facility] [place] presented c/o suicidal ideation, racing thoughts and fears that schizophrenia symptoms are worsening. Pt was anxious and agitated last night and given lorazepam 1mg po X1 for safety. Staff report that today she has been calmer but anxious and worried and requesting to go to a long-term. She reports that she has been feeling depressed and lonely at home. She reports that she has been compliant with medications. She states that she has had some AH but they have "not been bad. Much better than now that I take my medicine." She denies side effects. No SI/HI. She is agreeable for voluntarily admission and demonstrates capacity to consent to medications. Pts mother reports that she has monitored pts medication compliance and pt has been taking meds. Mother reports that pt has been lonely and having increased anxiety at home. Family is looking into a group setting for pt to give her more options for socialization. Tobacco Use In Past 30 Days: Yes How Often Do You Have a Drink Containing Alcohol: 2 to 4 times a month Hospital Course: Course in the hospital: The patient initially was in hopes of being transferred to a long-term facility but has changed her mind. The patient presents no new symptoms on the medications she has been taking at home. No changes were made and the patient now feels she is more welcome at home and has been asking for discharge since he first saw her. This seems to have been less of a regression in her schizophrenia than it was in her comforts in her home environment. - Discharge Discharge Date: 04/07/18 Discharge Disposition: Home - Discharge Instructions Discharge Diet: Regular Diet Activities You Can Perform: Regular- No Restrictions - Discharge Time > 30 minutes Mental Status Examination Appearance: Appropriate Consciousness: Alert Orientation: x4 Motor Activity: Normal gait Speech: Unremarkable Language: Adequate Fund of Knowledge: Adequate Attention and Concentration: Adequate Memory: Unremarkable Mood: Sad, Anxious Affect: Sad, Anxious Thought Process & Associations: Linear Thought Content: Appropriate Hallucination Type: None Delusion Type: None Suicidal Ideation: Yes Suicidal Plan: No Suicidal Intention: No Homicidal Ideation: No Homicidal Plan: No Homicidal Intention: No Insight: Fair Judgment: Impulsive Discharge/Advance Care Plan - Results Vital Signs: Last Vital Signs Temp 98.1 F 04/07/18 05:49 Pulse 81 04/07/18 05:49 Resp 16 04/07/18 05:49 BP 138/71 04/07/18 05:49 Pulse Ox 98 04/07/18 05:49 Lab Results: Abnormal Lab Results 04/06/18 04/06/18 09:39 09:39 Sodium 141 Potassium 3.8 Chloride 107 Carbon Dioxide 26.6 Anion Gap 7 BUN 9 Creatinine 0.83 Estimated GFR Greater than 89 Random Glucose 103 Hemoglobin A1c 5.4 Calcium 9.2 Triglycerides 146 Cholesterol 192 LDL Cholesterol, Calc 112 H HDL Cholesterol 50.8 Cholesterol/HDL Ratio 3.77 Laboratory Results Hemoglobin A1c 5.4 % (4.3-6.0) 04/06/18 09:39 Triglycerides 146 mg/dL (42-150) 04/06/18 09:39 Cholesterol 192 mg/dL (120-200) 04/06/18 09:39 LDL Cholesterol, Calc 112 mg/dL (0-99) H 04/06/18 09:39 HDL Cholesterol 50.8 mg/dL (40.0-60.0) 04/06/18 09:39 TSH 8.980 uIU/mL (0.358-3.740) H 04/04/18 19:27 Summary of Procedures: None Pending Results: None - Medications Number of antipsychotic medications at discharge: 1 - Discharge Care Plan Goals to Promote Your Health: * To prevent worsening of your condition and complications * To maintain your health at the optimal level Directions to Meet Your Goals: Take your medications as prescribed Follow your dietary instruction Follow activity as directed Keep your appointments as scheduled Take your immunizations and boosters as scheduled If your symptoms worsen call your PCP, if no PCP go to Urgent Care Center or Emergency Room For 02/09 questions related to your inpatient stay or results of tests pending at discharge, please contact Dr. Juvenal Harris MD at Smoking is Dangerous to Your Health. Avoid second hand smoking
== END 2018-04-07 12:20 | disposition home or self-care (01) | DRG 885 ==
LOC: NEPB 17:25 → NEDA 22:51 → H260 04-05 01:20
PROVIDERS: ADMIT Psychiatry & Neurology Child & Adolescent Psychiatry; ATTEND Psychiatry & Neurology Child & Adolescent Psychiatry